=== PATIENT | female | born 1960 | race African-American/Black ===

== ENCOUNTER 2016-07-11 19:29 | Emergency (ER) | payer OTHER, MEDICARE ==
[~2016-07-11] VITALS: Ht 160 cm; Wt 68.0 kg
[~2016-07-11 19:29] MED LIST: BUDE10.22 IH; CARV25TA2 PO; DIGO125T PO; DULO60CA6 PO; FOLI1TAB16 PO; FURO40TA4 PO
[2016-07-11 21:31] VITALS: BP 107/63
[2016-07-11] MEDS: MORPHINE SULFATE 4 MG/ML DISP.SYRIN. IV/SQ PRN (22:45)
[2016-07-11] MEDS ORDERED: DEXAMETHASONE SOD PHOS 20 MG/5 ML VIAL. IV ONE (23:00)
[2016-07-11] MEDS ORDERED: ASPIRIN 81 MG TAB.CHEW PO ONE (23:00)
[2016-07-11] MEDS ORDERED: ONDANSETRON PF 4 MG/2 ML VIAL. IV ONE (23:00)
[2016-07-11 23:43] LABS: BASO # 0.1 x10^3/uL (0.0-0.2); BASO % 1 % (0-3); EOS % 1 % (0-3); HEMATOCRIT 37.6 % (36.0-47.0); HEMOGLOBIN 12.3 g/dL (12.0-15.5); LYMPH # 5.2 x10^3/uL (1.0-4.8); LYMPH % 51 % (24-48); MEAN CORPUSCULAR HEMOGLOBIN 30 pg (25-35); MEAN CORPUSCULAR HGB CONC 33 g/dL (31-37); MEAN CORPUSCULAR VOLUME 93 fL (79-100); MONO % 4 % (0-9); NEUT % 43 % (31-73); PLATELET COUNT 403 x10^3/uL (140-400); RED BLOOD COUNT 4.05 x10^6/uL (3.50-5.40); RED CELL DISTRIBUTION WIDTH 14.2 % (11.5-14.5); WHITE BLOOD COUNT 10.4 x10^3/uL (4.0-11.0)
[2016-07-12 00:01] LABS: CALCIUM 8.8 mg/dL (8.5-10.1); CREATININE 1.1 mg/dL (0.6-1.0)
[2016-07-12 00:07] LABS: ALBUMIN 3.6 g/dL (3.4-5.0); DIRECT BILIRUBIN 0.1 mg/dL (0.0-0.2); MAGNESIUM 2.2 mg/dL (1.8-2.4); TOTAL BILIRUBIN 0.2 mg/dL (0.2-1.0); TOTAL PROTEIN 7.1 g/dL (6.4-8.2)
[2016-07-12] MEDS: MORPHINE SULFATE 4 MG/ML DISP.SYRIN. IV/SQ PRN ×2 (00:13→00:39)
[2016-07-12 00:16] LABS: CKMB INDEX 0.6 % (0-4); CKMB MASS 0.8 ng/mL (0.0-3.6)
[2016-07-12] MEDS ORDERED: PRED-220 PO (00:31)
[2016-07-12] MEDS ORDERED: HYDR-971 PO (00:31)
--- NOTE | 2016-07-12 00:31 | PHYS DOC ---
Past Medical History Past Medical History: CHF, Fibromyalgia, GERD Additional Past Medical Histor: lupus, cardiomyopathy, esophagitis Past Surgical History: Tubal ligation Alcohol Use: None Drug Use: None Adult General Chief Complaint Chief Complaint: left upper arm pain HPI HPI Patient is a 55 year old female who presents with primary complaint of left upper extremity pain. Patient states that she has been having persistent pain over the past 4 days. Patient states that the pain is mostly in her left shoulder and radiates down her left arm. Patient also notes that she has left- sided chest pain. Patient has history of fibromyalgia and lupus. Patient follows with Dr. Mosqueda of cardiology. Patient states that she had recent stress testing in March 2016 which did not show any evidence of significant coronary stenosis. The patient states that the pain worsens at nighttime and with movement of the left upper extremity. Patient denies any recent trauma. Patient currently rates pain as 4 out of 10. Patient has been taking hydrocodone for pains in her left arm. Patient states that she ran out of this medication one week ago. Patient denies any shortness of breath, diaphoresis, or nausea associated with her chest pains. Patient states that these pains have been sharp. Review of Systems Review of Systems Constitutional: Denies fever or chills [] Eyes: Denies change in visual acuity, redness, or eye pain [] HENT: Denies nasal congestion or sore throat [] Respiratory: Denies cough or shortness of breath [] Cardiovascular: Chest pain [] GI: Denies abdominal pain, nausea, vomiting, bloody stools or diarrhea [] : Denies dysuria or hematuria [] Musculoskeletal: Left upper extremity pain [] Integument: Denies rash or skin lesions [] Neurologic: Denies headache, focal weakness or sensory changes [] Current Medications Current Medications Current Medications Medications (Trade) Dose Ordered Sig/Kellie Start Time Stop Time Status Last Admin Dose Admin Aspirin (Children'S Aspirin) 324 mg 1X ONCE 07/11/16 23:00 07/11/16 23:01 DC 07/11/16 22:45 324 MG Dexamethasone Sodium Phosphate (Decadron) 8 mg 1X ONCE 07/11/16 23:00 07/11/16 23:01 DC 07/11/16 22:45 8 MG Morphine Sulfate 4 mg PRN Q15MIN PRN 07/11/16 22:45 07/12/16 00:46 DC 07/12/16 00:39 4 MG Ondansetron HCl (Zofran) 4 mg 1X ONCE 07/11/16 23:00 07/11/16 23:01 DC 07/11/16 22:45 4 MG Allergies Allergies Allergies Coded Allergies Type Severity Reaction Last Updated Verified lisinopril Allergy Intermediate angioedema 02/06/14 Yes Physical Exam Physical Exam Constitutional: Alert, afebrile, appears in mild discomfort. [] HENT: Normocephalic, atraumatic, bilateral external ears normal, oropharynx moist, no oral exudates, nose normal. [] Eyes: PERRLA, EOMI, conjunctiva normal, no discharge. [] Neck: Normal range of motion, no tenderness, supple, no stridor. [] Cardiovascular:Heart rate regular rhythm, no murmur [] Lungs & Thorax: Bilateral breath sounds clear to auscultation, left-sided chest wall tenderness to palpation causing reproducible pain [] Abdomen: Bowel sounds normal, soft, no tenderness, no masses, no pulsatile masses. [] Skin: Warm, dry, no erythema, no rash. [] Back: No tenderness, no CVA tenderness. [] Extremities: Left anterior and lateral shoulder tenderness to palpation, no cyanosis, no clubbing, ROM intact, no edema. [] Neurologic: Alert and oriented X 3, normal motor function, normal sensory function, no focal deficits noted. [] Current Patient Data Vital Signs Vital Signs Date Time Temp Pulse Resp B/P Pulse Ox O2 Delivery O2 Flow Rate FiO2 07/11/16 21:31 62 15 107/63 97 Room Air 07/11/16 19:50 98.0 98.0 Lab Values Laboratory Tests Test 07/11/16 20:00 White Blood Count 10.4x10^3/uL (4.0-11.0) Red Blood Count 4.05x10^6/uL (3.50-5.40) Hemoglobin 12.3g/dL (12.0-15.5) Hematocrit 37.6% (36.0-47.0) Mean Corpuscular Volume 93fL (79-100) Mean Corpuscular Hemoglobin 30pg (25-35) Mean Corpuscular Hemoglobin Concent 33g/dL (31-37) Red Cell Distribution Width 14.2% (11.5-14.5) Platelet Count 403x10^3/uL (140-400) H Neutrophils (%) (Auto) 43% (31-73) Lymphocytes (%) (Auto) 51% (24-48) H Monocytes (%) (Auto) 4% (0-9) Eosinophils (%) (Auto) 1% (0-3) Basophils (%) (Auto) 1% (0-3) Neutrophils # (Auto) 4.5x10^3uL (1.8-7.7) Lymphocytes # (Auto) 5.2x10^3/uL (1.0-4.8) H Monocytes # (Auto) 0.5x10^3/uL (0.0-1.1) Eosinophils # (Auto) 0.1x10^3/uL (0.0-0.7) Basophils # (Auto) 0.1x10^3/uL (0.0-0.2) Sodium Level 135mmol/L (136-145) L Potassium Level 4.0mmol/L (3.5-5.1) Chloride Level 103mmol/L (98-107) Carbon Dioxide Level 28mmol/L (21-32) Anion Gap 4 (6-14) L Blood Urea Nitrogen 13mg/dL (7-20) Creatinine 1.1mg/dL (0.6-1.0) H Estimated GFR (Cockcroft-Gault) 52.0 Glucose Level 86mg/dL (70-99) Calcium Level 8.8mg/dL (8.5-10.1) Magnesium Level 2.2mg/dL (1.8-2.4) Total Bilirubin 0.2mg/dL (0.2-1.0) Direct Bilirubin 0.1mg/dL (0.0-0.2) Aspartate Amino Transferase (AST) 15U/L (15-37) Alanine Aminotransferase (ALT) 14U/L (14-59) Alkaline Phosphatase 65U/L (46-116) Creatine Kinase 139U/L (26-192) Creatine Kinase MB (Mass) 0.8ng/mL (0.0-3.6) Creatine Kinase MB Relative Index 0.6% (0-4) Troponin I Quantitative 0.037ng/mL (0.000-0.055) Total Protein 7.1g/dL (6.4-8.2) Albumin 3.6g/dL (3.4-5.0) Laboratory Tests 07/11/16 20:00 Laboratory Tests 07/11/16 20:00 EKG EKG Patient's EKG was reviewed in the emergency department and showed no acute abnormalities [] Radiology/Procedures Radiology/Procedures [facility] [address] [place] [address] IMAGING REPORT Signed PATIENT: TRESSA TITUS ACCOUNT: [id number] : 1960 LOCATION: ER AGE: 55 SEX: F EXAM STATUS: DEP ER ORD. PHYSICIAN: LUZ HADDAD MD REASON: chest pain PROCEDURE: PORTABLE CHEST 1V Indication chest pain. A single view of the chest was obtained and is compared to a study 03/13/2016. The heart, pulmonary vessels and mediastinum appear normal. The lungs are clear. There has not been a significant change in the appearance of the chest compared to the prior exam. IMPRESSION: No acute or focal process. No significant change DICTATED and SIGNED BY: ALISE FAUST MD DATE: 07/12/16 0737 CC: LUZ HADDAD MD; CANDELARIO MARX MD ~ [] Course & Med Decision Making Course & Med Decision Making Pertinent Labs and Imaging studies reviewed. (See chart for details) Patient's labwork unremarkable for acute cardiac pathology. I have low suspicion the patient is having angina symptoms. The patient's symptoms appear most consistent with possible inflammatory arthritis versus fibromyalgia flareup. After discussion with the patient, we will start patient on a prednisone taper. The patient was also given a small prescription for hydrocodone to help with breakthrough pain. I consult to Dr. Mosqueda who agreed with plan of care and asked that the patient follow-up in his clinic within the next 3-5 days. Recommended return to the emergency department for any worsening symptoms. Patient voiced understanding and in agreement with treatment plan. Dragon Disclaimer Dragon Disclaimer This electronic medical record was generated, in whole or in part, using a voice recognition dictation system. Departure Departure Impression: Primary Impression: Left arm pain Additional Impression: Chest pain Disposition: HOME, SELF-CARE Condition: IMPROVED Referrals: CANDELARIO MARX MD (PCP) Patient Instructions: Chest Pain (Nonspecific), Musculoskeletal Pain Additional Instructions: Follow-up with primary doctor in 3-5 days. Return to the emergency department for any worsening symptoms. Scripts Hydrocodone/Apap 5-325 ([place] 5-325 Tablet)1 Each Tablet1-2 Tab PO Q4-6HRS #20 TAB Prov:LUZ HADDAD MD 07/12/16 Prednisone 10 Mg [id number] Mg PO UD PREDNISONE TAPER #39 TAB Ref 0 Take 3 tablets by mouth twice a day for 3 days, then take 2 tablets by mouth twice a day for 3 days, then take 1 tablet by mouth twice a day for 3 days, then take 1 tablet by mouth daily x 3 days, then stop. Prov:LUZ HADDAD MD 07/12/16 Problem Qualifiers Additional Impression: Chest pain Chest pain type: other chest pain Qualified Code: R07.89 - Other chest pain LUZ HADDAD MD Jul 12, 2016 00:31
--- NOTE | 2016-07-12 06:52 | EKG ---
[facility] [address] [place] [address] Test Date: 2016-07-11 Test Time: 19:55:27 Pat Name: TRESSA TITUS Department: Room: Gender: F Advanced Solutions Architect: : 1960 Requested By: LUZ HADDAD Order Number: [id number] Reading MD: Antea Gaspar Measurements Intervals [place] Rate: 62 P: 41 SC: 148 QRS: 7 QRSD: 82 T: 36 QT: 400 QTc: 408 Interpretive Statements SINUS RHYTHM LEFT ATRIAL ABNORMALITY RI6.01 Unconfirmed report No previous ECG available for comparison Electronically Signed On 07-16-2016 15:02:54 STORE ASSOCIATE by Aneta Gaspar
--- NOTE | 2016-07-12 07:41 | RAD ---
Indication chest pain. A single view of the chest was obtained and is compared to a study 03/13/2016. The heart, pulmonary vessels and mediastinum appear normal. The lungs are clear. There has not been a significant change in the appearance of the chest compared to the prior exam. IMPRESSION: No acute or focal process. No significant change
== END 2016-07-12 00:46 | disposition home or self-care (01) ==
LOC: ER 19:29
DX: M79.622 Pain in left upper arm (principal); R07.89 Other chest pain; M25.512 Pain in left shoulder; I50.9 Heart failure, unspecified; I42.9 Cardiomyopathy, unspecified; K21.9 Gastro-esophageal reflux disease without esophagitis; M32.9 Systemic lupus erythematosus, unspecified; M79.7 Fibromyalgia; Z98.51 Tubal ligation status; Z88.8 Allergy status to other drugs, medicaments and biological substances
CPT/HCPCS: 36415; 71010; 80048; 80076; 82553; 83735; 84484; 85027; 93005; 96374; 96375; 96376; 99285; J1100; J2270; J2405

== ENCOUNTER 2016-07-19 15:57 | Inpatient (IN) | payer OTHER, MEDICARE ==
[~2016-07-19] VITALS: Ht 160 cm; Wt 75.1 kg
[~2016-07-19 15:57] MED LIST changes: +HYDR-971 PO; +PRED-220 PO
[2016-07-19 16:42] LABS: BASO # 0.1 x10^3/uL (0.0-0.2); BASO % 1 % (0-3); EOS % 1 % (0-3); HEMATOCRIT 42.5 % (36.0-47.0); HEMOGLOBIN 14.1 g/dL (12.0-15.5); LYMPH # 2.6 x10^3/uL (1.0-4.8); LYMPH % 24 % (24-48); MEAN CORPUSCULAR HEMOGLOBIN 31 pg (25-35); MEAN CORPUSCULAR HGB CONC 33 g/dL (31-37); MEAN CORPUSCULAR VOLUME 92 fL (79-100); MONO % 9 % (0-9); NEUT % 66 % (31-73); PLATELET COUNT 442 x10^3/uL (140-400); RED BLOOD COUNT 4.63 x10^6/uL (3.50-5.40); RED CELL DISTRIBUTION WIDTH 14.4 % (11.5-14.5)
[2016-07-19] MEDS ORDERED: ONDANSETRON PF 4 MG/2 ML VIAL. IV ONE (16:45)
[2016-07-19] MEDS ORDERED: ASPIRIN 81 MG TAB.CHEW PO ONE (16:45)
[2016-07-19] MEDS ORDERED: FENTANYL PF 100 MCG/2 ML VIAL. IV PRN (16:45)
[2016-07-19] MEDS ORDERED: NITROGLYCERIN SUBLINGUAL 0.4 MG BOTTLE OF 25. SL PRN (16:45)
[2016-07-19 16:58] LABS: CALCIUM 9.3 mg/dL (8.5-10.1); CREATININE 1.2 mg/dL (0.6-1.0); GFR 56.9; POTASSIUM 4.6 mmol/L (3.5-5.1)
[2016-07-19 17:02] LABS: ALBUMIN 3.9 g/dL (3.4-5.0); DIRECT BILIRUBIN 0.1 mg/dL (0.0-0.2); MAGNESIUM 2.2 mg/dL (1.8-2.4); TOTAL BILIRUBIN 0.4 mg/dL (0.2-1.0); TOTAL PROTEIN 7.9 g/dL (6.4-8.2)
[2016-07-19 17:09] LABS: CKMB INDEX 0.9 % (0-4); CKMB MASS 0.8 ng/mL (0.0-3.6)
[2016-07-19] MEDS ORDERED: IPRATRPIUM/ALBUTEROL 0.5/2.5MG 3 ML NEBU. NEB ONE (17:30)
[2016-07-19 18:00] LABS: OBC FLU VALID
[2016-07-19] MEDS ORDERED: ONDANSETRON PF 4 MG/2 ML VIAL. IV PRN (18:45)
--- NOTE | 2016-07-19 19:13 | PHYS DOC ---
Past Medical History Past Medical History: CHF, Fibromyalgia, GERD Additional Past Medical Histor: lupus, cardiomyopathy, esophagitis Past Surgical History: Tubal ligation Alcohol Use: None Drug Use: None Adult General Chief Complaint Chief Complaint: CHEST PAIN HPI HPI Patient is a 55 year old female who presents with complaint of chest pain and shortness of breath. Patient states that her chest pain started approximately 2 hours prior to arrival. Patient states that she has been having trouble with coughing over the past 3-4 days. Patient recently saw her primary physician and was prescribed Phenergan with codeine to help with cough. Patient states that her symptoms have been worsening. She states that her chest pressure has improved but is still present and rates it as a 4 out of 10 currently. Patient follows with Dr. Mosqueda for history of cardiomyopathy. Patient also has history of lupus and fibromyalgia. Patient states that the pressure radiates across her chest towards her left shoulder. Patient denies any associated nausea or vomiting but does have shortness of breath. Cough has been productive of yellow sputum. Patient has not taken any medications at this time to help with her chest pain. Patient denies any history of asthma or COPD. Patient has been on a prednisone taper for treatment of left upper extremity pain. Review of Systems Review of Systems Constitutional: Denies fever or chills [] Eyes: Denies change in visual acuity, redness, or eye pain [] HENT: Denies nasal congestion or sore throat [] Respiratory: Shortness of breath [] Cardiovascular: Chest pain [] GI: Denies abdominal pain, nausea, vomiting, bloody stools or diarrhea [] : Denies dysuria or hematuria [] Musculoskeletal: Left upper extremity pain [] Integument: Denies rash or skin lesions [] Neurologic: Denies headache, focal weakness or sensory changes [] Endocrine: Denies polyuria or polydipsia [] Current Medications Current Medications Current Medications Medications (Trade) Dose Ordered Sig/Kellie Start Time Stop Time Status Last Admin Dose Admin Albuterol/ Ipratropium (Duoneb) 6 ml 1X ONCE 07/19/16 17:30 07/19/16 17:31 DC 07/19/16 17:38 6 ML Aspirin (Children'S Aspirin) 324 mg 1X ONCE 07/19/16 16:45 07/19/16 16:46 DC 07/19/16 17:16 324 MG Fentanyl Citrate (Fentanyl 2ml Vial) 50 mcg PRN Q15MIN PRN 07/19/16 16:45 07/20/16 16:44 07/19/16 18:35 50 MCG Nitroglycerin (Nitrostat) 0.4 mg PRN Q5MIN PRN 07/19/16 16:45 07/20/16 16:44 07/19/16 17:18 0.4 MG Ondansetron HCl (Zofran) 4 mg 1X ONCE 07/19/16 16:45 07/19/16 16:46 DC 07/19/16 18:32 4 MG Allergies Allergies Allergies Coded Allergies Type Severity Reaction Last Updated Verified lisinopril Allergy Intermediate angioedema 02/06/14 Yes Physical Exam Physical Exam Constitutional: Alert, afebrile, appears in mild to moderate discomfort. [] HENT: Normocephalic, atraumatic, bilateral external ears normal, oropharynx moist, no oral exudates, nose normal. [] Eyes: PERRLA, EOMI, conjunctiva normal, no discharge. [] Neck: Normal range of motion, no tenderness, supple, no stridor. [] Cardiovascular:Heart rate regular rhythm, no murmur [] Lungs & Thorax: Mild to moderate restriction of air movement bilaterally, expiratory wheezes bilaterally, no rales [] Abdomen: Bowel sounds normal, soft, no tenderness, no masses, no pulsatile masses. [] Skin: Warm, dry, no erythema, no rash. [] Back: No tenderness, no CVA tenderness. [] Extremities: No tenderness, no cyanosis, no clubbing, ROM intact, no edema. [] Neurologic: Alert and oriented X 3, normal motor function, normal sensory function, no focal deficits noted. [] Current Patient Data Vital Signs Vital Signs Date Time Temp Pulse Resp B/P Pulse Ox O2 Delivery O2 Flow Rate FiO2 07/19/16 17:59 74 22 125/86 95 Room Air 07/19/16 16:18 97.9 97.9 Lab Values Laboratory Tests Test 07/19/16 16:25 07/19/16 17:20 White Blood Count 11.0x10^3/uL (4.0-11.0) Red Blood Count 4.63x10^6/uL (3.50-5.40) Hemoglobin 14.1g/dL (12.0-15.5) Hematocrit 42.5% (36.0-47.0) Mean Corpuscular Volume 92fL (79-100) Mean Corpuscular Hemoglobin 31pg (25-35) Mean Corpuscular Hemoglobin Concent 33g/dL (31-37) Red Cell Distribution Width 14.4% (11.5-14.5) Platelet Count 442x10^3/uL (140-400) H Neutrophils (%) (Auto) 66% (31-73) Lymphocytes (%) (Auto) 24% (24-48) Monocytes (%) (Auto) 9% (0-9) Eosinophils (%) (Auto) 1% (0-3) Basophils (%) (Auto) 1% (0-3) Neutrophils # (Auto) 7.3x10^3uL (1.8-7.7) Lymphocytes # (Auto) 2.6x10^3/uL (1.0-4.8) Monocytes # (Auto) 1.0x10^3/uL (0.0-1.1) Eosinophils # (Auto) 0.1x10^3/uL (0.0-0.7) Basophils # (Auto) 0.1x10^3/uL (0.0-0.2) Sodium Level 144mmol/L (136-145) Potassium Level 4.6mmol/L (3.5-5.1) Chloride Level 105mmol/L (98-107) Carbon Dioxide Level 29mmol/L (21-32) Anion Gap 10 (6-14) Blood Urea Nitrogen 20mg/dL (7-20) Creatinine 1.2mg/dL (0.6-1.0) H Estimated GFR (Cockcroft-Gault) 56.9 Glucose Level 110mg/dL (70-99) H Calcium Level 9.3mg/dL (8.5-10.1) Magnesium Level 2.2mg/dL (1.8-2.4) Total Bilirubin 0.4mg/dL (0.2-1.0) Direct Bilirubin 0.1mg/dL (0.0-0.2) Aspartate Amino Transferase (AST) 9U/L (15-37) L Alanine Aminotransferase (ALT) 23U/L (14-59) Alkaline Phosphatase 68U/L (46-116) Creatine Kinase 89U/L (26-192) Creatine Kinase MB (Mass) 0.8ng/mL (0.0-3.6) Creatine Kinase MB Relative Index 0.9% (0-4) Troponin I Quantitative < 0.017ng/mL (0.000-0.055) PT-Jai-L-Type Natriuretic Peptide 118pg/mL (0-124) Total Protein 7.9g/dL (6.4-8.2) Albumin 3.9g/dL (3.4-5.0) Influenza Type A Antigen Negative (NEGATIVE) Influenza Type B Antigen Negative (NEGATIVE) Laboratory Tests 07/19/16 16:25 Laboratory Tests 07/19/16 16:25 EKG EKG Interpreted by me: Heart rate 76, sinus rhythm, normal intervals, incomplete right bundle branch block, J-point elevation in leads V1 and V2, no acute ST elevations or depressions, no changes from previous EKG on July 11, 2016 [] Radiology/Procedures Radiology/Procedures One view AP chest x-ray interpreted by me: No infiltrate, no effusion, normal cardiac silhouette [] Course & Med Decision Making Course & Med Decision Making Pertinent Labs and Imaging studies reviewed. (See chart for details) Patient was given breathing treatments, aspirin, and Solu-Medrol in the emergency department. The patient stated that she had improvement in symptoms however she states that chest pressure is still present. I spoke with Dr. Mosqueda, patient's forestry adviser, due to persistent chest pain with history of cardiomyopathy. He recommended that the patient be admitted and he would agreed to consult on patient. Differential includes angina versus lupus exacerbation. I spoke with Dr. Victoria who accepted care patient in hospital. Dragon Disclaimer Dragon Disclaimer This electronic medical record was generated, in whole or in part, using a voice recognition dictation system. Departure Departure Impression: Primary Impression: Chest pain Additional Impression: Reactive airway disease Disposition: ADMITTED INPATIENT Admitting Physician: Delvin Victoria Condition: STABLE Referrals: DELVIN VICTORIA MD (PCP) Problem Qualifiers Primary Impression: Chest pain Chest pain type: unspecified Qualified Code: R07.9 - Chest pain, unspecified Additional Impression: Reactive airway disease Asthma severity: moderate persistent Asthma complication type: uncomplicated Qualified Code: J45.40 - Moderate persistent asthma, uncomplicated LUZ HADDAD MD Jul 19, 2016 19:13
[2016-07-19] MEDS: IV NORMAL SALINE 1000ML BAG 1,000 ML IV SCH (19:25)
[2016-07-19 21:10] VITALS: BP 122/79
[2016-07-19] MEDS ORDERED: BUDE10.22 IH (22:37)
[2016-07-19] MEDS ORDERED: ESCI10TA PO (22:37)
[2016-07-19] MEDS ORDERED: BENZ200C39 PO (22:37)
[2016-07-19] MEDS ORDERED: OMEP40CA5 PO (22:37)
[2016-07-19] MEDS ORDERED: NON FORMULARY ITEM (Budesonide/Formoterol Fumarate (Symbicort 80-4.5 Mcg Inhaler) 2 PUFF) IH SCH (22:45)
[2016-07-19] MEDS: ACETAMINOPHEN 325 MG TABLET. PO PRN (22:53)
[2016-07-19] MEDS: ZOLPIDEM 5 MG TABLET. PO PRN (22:53)
[2016-07-19 22:57] VITALS: BP 121/89
[2016-07-19] MEDS: methylPREDNISolone SOD SUCC PF 40 MG/ML VIAL. IV SCH (23:49)
[2016-07-20 03:00] VITALS: BP 128/74
[2016-07-20] MEDS: IV NORMAL SALINE 1000ML BAG 1,000 ML IV SCH ×2 (04:35→14:35)
[2016-07-20] MEDS: methylPREDNISolone SOD SUCC PF 40 MG/ML VIAL. IV SCH (06:12)
[2016-07-20 07:00] VITALS: BP 123/90
[2016-07-20] MEDS: ALBUTEROL SULFATE 2.5 MG/3 ML NEBU. NEB SCH ×4 (07:00→19:58)
[2016-07-20] MEDS: BUDESONIDE 0.5 MG/2 ML NEBU NEB SCH ×2 (07:00→19:58)
[2016-07-20 07:09] LABS: BASO % 0 % (0-3); EOS % 0 % (0-3); HEMATOCRIT 40.7 % (36.0-47.0); HEMOGLOBIN 13.1 g/dL (12.0-15.5); LYMPH % 23 % (24-48); MEAN CORPUSCULAR HEMOGLOBIN 30 pg (25-35); MEAN CORPUSCULAR HGB CONC 32 g/dL (31-37); MEAN CORPUSCULAR VOLUME 93 fL (79-100); MONO % 5 % (0-9); NEUT % 71 % (31-73); PLATELET COUNT 411 x10^3/uL (140-400); RED CELL DISTRIBUTION WIDTH 14.7 % (11.5-14.5); WHITE BLOOD COUNT 8.5 x10^3/uL (4.0-11.0)
[2016-07-20 07:10] LABS: CREATININE 1.1 mg/dL (0.6-1.0); GFR 62.9
--- NOTE | 2016-07-20 07:19 | EKG ---
[facility] [address] [place] [address] Test Date: 2016-07-19 Test Time: 16:04:19 Pat Name: TRESSA TITUS Department: Room: 521 1 Gender: F Refrigeration Mechanic Helper: : 1960 Requested By: LUZ HADDAD Order Number: [id number] Reading MD: Blair Ca Measurements Intervals [place] Rate: 76 P: 51 [place]: 116 QRS: 58 QRSD: 74 T: 50 QT: 340 QTc: 386 Interpretive Statements SINUS RHYTHM LEFT ATRIAL ABNORMALITY Electronically Signed On 08-03-2016 14:43:50 ENGINEERING DOCUMENTATION SPECIALIST by Blair Ca
--- NOTE | 2016-07-20 07:45 | RAD ---
Portable chest, 07/19/2016: History: Chest pain, shortness of breath Comparison is made to a study from 07/11/2016. The heart size and pulmonary vascularity are normal. No pulmonary infiltrates are seen. There is no evidence of pleural fluid. IMPRESSION: No acute cardiopulmonary abnormality is detected.
[2016-07-20] MEDS ORDERED: CARVEDILOL 12.5 MG TABLET PO SCH (08:00)
[2016-07-20] MEDS: PANTOPRAZOLE 40 MG TABLET. PO SCH (08:25)
[2016-07-20] MEDS: ACETAMINOPHEN 325 MG TABLET. PO PRN ×2 (08:26→21:21)
[2016-07-20] MEDS: DULOXETINE HCL 30 MG CAPSULE.DR. PO SCH (09:00)
[2016-07-20] MEDS ORDERED: FUROSEMIDE 40 MG TABLET PO SCH (09:00)
[2016-07-20] MEDS ORDERED: PREDNISONE 10 MG TABLET PO SCH (09:00)
--- NOTE | 2016-07-20 09:25 | PDOC ---
Provider Note Provider Note [id number] CANDELARIO MARX MD Jul 20, 2016 09:25
[2016-07-20] MEDS ORDERED: IOHEXOL 300 MG/ML 75 ML VIAL IV ONE (09:30)
[2016-07-20] MEDS ORDERED: CONTRAST GIVEN MC PRN (09:30)
[2016-07-20] MEDS ORDERED: methylPREDNISolone SOD SUCC PF 40 MG/ML VIAL. IV SCH ×2 (09:30→21:00)
--- NOTE | 2016-07-20 09:57 | HP ---
ADMIT DATE: CHIEF COMPLAINT: Ongoing cough and dyspnea. HISTORY OF PRESENT ILLNESS: A 55-year-old black female has a history of mild cardiomyopathy and remote history of lupus and she use Symbicort in the past, which she was told " hard." She has never told she had asthma that she recalls and only uses Symbicort periodically. She has had increasing cough and shortness of breath recently admits in the ER, but she had some chest wall pain, was given some prednisone, which helped for a while. She has tapered off that and the cough has increased and she came in with increasing dyspnea. Chest x-ray was clear. All laboratory was normal and she was admitted with IV steroids is suspected to asthma exacerbation. She has no sputum production, no hemoptysis, fever, chills or other complaints. PAST MEDICAL HISTORY: Cardiomyopathy with a previous reduced ejection fraction, some years ago of 18%, but about a year and half ago, the EF was up to 48% per Dr. Mosqueda note. There is no history of coronary artery disease and the etiology of her cardiomyopathy is not clear, but there is viral or collagen vascular disease. ALLERGIES: ALLERGIC TO LISINOPRIL. MEDICATIONS: Include carvedilol, Lasix, Cymbalta and Lexapro. SOCIAL HISTORY: Nonsmoker, nondrinker, employed, single, not physically active. FAMILY HISTORY: Unremarkable. REVIEW OF SYSTEMS: Unremarkable. OBJECTIVE: ENT: All within normal limits. NECK: No masses, nodes or bruits. LUNGS: Few crackles, mildly decreased breath sounds, few scattered expiratory wheezes. CARDIOVASCULAR: Regular rate. No irregular beat, murmur or S3. Chest wall is nontender. ABDOMEN: Soft, benign and nontender. EXTREMITIES: Excellent pedal and radial pulses. No edema. No joint or skin lesions or nail bed findings. NEUROLOGIC: Physiologic and nonfocal, oriented x 4. ASSESSMENT: Suspect this is primarily reactive airway disease with secondary exacerbation. She has a history of lupus, but appears to be inactive parole lab markers and clinical markers at this time. The cardiomyopathy appears to be in remission probably ____ as well. Ongoing use of marijuana per drug screen could contribute to her ongoing cough. PLAN: Continue IV steroids. We will get a CTA make sure there is no pulmonary emboli as the secondary source of chest pain and cough. CANDELARIO MARX MD DR: Tunde JOB#: [id number] / [id number]
[2016-07-20] MEDS: ESCITALOPRAM 10 MG TABLET. PO SCH (10:33)
[2016-07-20] MEDS: FOLIC ACID 1 MG TABLET PO SCH (10:33)
[2016-07-20] MEDS: DIGOXIN 125 MCG TABLET PO SCH (10:34)
[2016-07-20 11:00] VITALS: BP 114/71
--- NOTE | 2016-07-20 12:59 | RAD ---
CTA of the chest with contrast, 07/20/2016: History: Shortness of breath, chronic cough Multidetector CT imaging was performed following an IV bolus injection of iodinated contrast material. Multiplanar reconstructions were produced including coronal MIP images. The main pulmonary artery is mildly dilated measuring 3.1 cm in width. It is fairly well opacified. No filling defects are seen in the central pulmonary arteries to suggest pulmonary emboli. Some of the segmental and subsegmental pulmonary arteries were not optimally delineated due to artifacts. The thoracic aorta is of normal caliber. There are calcified mediastinal lymph nodes compatible with old granulomatous disease. No noncalcified mediastinal or hilar adenopathy is seen. There several calcified granulomata are present in the right lung. Evaluation of lung parenchyma is partially compromised by respiratory motion artifacts. No pulmonary mass or significant consolidation is seen. There is no evidence of pleural fluid. A small fluid density lesion along the upper pole of the right kidney is most likely an exophytic renal cyst. An adrenal cyst or benign adenoma could also give this appearance.. IMPRESSION: 1. No CT evidence of central pulmonary emboli. 2. Mild enlargement of the main pulmonary artery 3. Old healed granulomatous disease in the chest. PQRS Compliance Statement: One or more of the following individualized dose reduction techniques were utilized for this examination: 1. Automated exposure control 2. Adjustment of the mA and/or kV according to patient size 3. Use of iterative reconstruction technique
[2016-07-20 15:00] VITALS: BP 133/86
--- NOTE | 2016-07-20 16:25 | PDOC2 ---
CONSULT Date of Consult Date of Consult DATE: 07/20/16 TIME: 16:13 Reason for Consult Reason for Consult: Cardiomyopathy - possible CHF Referring Physician Referring Physician: Dr. Victoria Identification/Chief Complaint Chief Complaint SOB History of Present Illness Reason for Visit: Pt came in yesterday due to shortness of breath, light headedness, and orthopnea. Pt stated she had chest pressure but denied pain. Pt stated it was in the center of her chest and did not radiate. Pt today stated her pressure was not as bad today but when she stood up she started having chest pressure. Pt stated that rest helped her pressure. Pt has a history of cardiomyopathy and lupus. Pt stated today her she still had SOB but it was better than yesterday. Past Medical History Cardiovascular: CHF, HTN GI: Gastritis Current Problem List Problem List Problems Medical Problems: (1) Chest pain Status: Acute (2) Reactive airway disease Status: Acute Current Medications Current Medications Current Medications Aspirin (Children'S Aspirin) 324 mg 1X ONCE PO Last administered on 07/19/16 17:16; Start 07/19/16 at 16:45; Stop 07/20/16 at 09:22; Status DC Nitroglycerin (Nitrostat) 0.4 mg PRN Q5MIN PRN SL CP RATING > 1/10 Last administered on 07/19/16 17:18; Start 07/19/16 at 16:45; Stop 07/20/16 at 16:44 Fentanyl Citrate (Fentanyl 2ml Vial) 50 mcg PRN Q15MIN PRN IV PAIN GREATER THAN 3/10 Last administered on 07/19/16 18:35; Start 07/19/16 at 16:45; Stop at 09:09; Status DC Ondansetron HCl (Zofran) 4 mg 1X ONCE IV Last administered on 07/19/16 18:32 ; Start 07/19/16 at 16:45; Stop 07/19/16 at 16:46; Status DC Albuterol/ Ipratropium (Duoneb) 6 ml 1X ONCE NEB Last administered on 17:38; Start 07/19/16 at 17:30; Stop 07/19/16 at 17:31; Status DC Ondansetron HCl 4 mg 4 mg PRN Q8HRS PRN IV NAUSEA/VOMITING; Start 07/19/16 at 18:45; Stop 07/20/16 at 18:44 Sodium Chloride (Iv Sodium Chloride 0.9% 1000ml Bag) 1,000 ml @ 100 mls/hr Q10H IV Last administered on 07/19/16 19:25; Start 07/19/16 at 18:35; Stop at 18:34 Acetaminophen (Tylenol) 650 mg PRN Q4HRS PRN PO FEVER Last administered on 07/20 08:26; Start 07/19/16 at 18:45; Stop 07/20/16 at 18:44 Methylprednisolone Sodium Succinate (Solu-Medrol 40mg Vial) 60 mg Q6HRS IV Last administered on 07/20/16 06:12; Start 07/20/16 at 00:00; Stop 07/20/16 at 09:09; Status DC Digoxin (Lanoxin) 125 mcg DAILY PO Last administered on 07/20/16 10:34; Start 07/20/16 at 09:00 Escitalopram Oxalate (Lexapro) 10 mg DAILY PO Last administered on 07/20/16 10 :33; Start 07/20/16 at 09:00 Folic Acid (Folic Acid) 0.5 mg DAILY PO Last administered on 07/20/16 10:33; Start 07/20/16 at 09:00 Furosemide (Lasix) 40 mg DAILY PO ; Start 07/20/16 at 09:00; Stop 07/20/16 at 09 :22; Status DC Prednisone (Prednisone) 10 mg DAILY PO ; Start 07/20/16 at 09:00; Status UNV Benzonatate (Tessalon Perle) 200 mg PRN TID PRN PO COUGH; Start 07/20/16 at 09: 00 Non-Formulary Medication 2 puff PRN IH ; Start 07/19/16 at 22:45; Status UNV Carvedilol (Coreg) 25 mg DAILYWBKFT PO Last administered on 07/20/16 08:26; Start 07/20/16 at 08:00; Stop 07/20/16 at 09:22; Status DC Duloxetine HCl (Cymbalta) 60 mg DAILY PO ; Start 07/20/16 at 09:00 Pantoprazole Sodium (Protonix) 40 mg DAILYAC PO Last administered on 07/20/16 08:25; Start 07/20/16 at 07:30 Zolpidem Tartrate (Ambien) 5 mg PRN QHS PRN PO INSOMNIA Last administered on 22:53; Start 07/19/16 at 22:45 Budesonide (Pulmicort) 0.5 mg RTBID NEB Last administered on 07/20/16 07:00; Start 07/20/16 at 08:00 Albuterol Sulfate (Ventolin Neb Soln) 2.5 mg RTQID NEB Last administered on 10:47; Start 07/20/16 at 08:00; Stop 07/20/16 at 15:50; Status DC Methylprednisolone Sodium Succinate (Solu-Medrol 40mg Vial) 60 mg BID IV Last administered on 07/20/16 10:35; Start 07/20/16 at 09:30 Carvedilol (Coreg) 12.5 mg BID76 PO ; Start 07/21/16 at 07:00 Iohexol (Omnipaque 300 Mg/ml) 75 ml 1X ONCE IV ; Start 07/20/16 at 09:30; Stop 07/20/16 at 09:31; Status DC Info (Do NOT chart on this entry -- for MONITORING) 1 each PRN DAILY PRN MC SEE COMMENTS; Start 07/20/16 at 09:30; Stop 07/22/16 at 09:29 Albuterol Sulfate (Ventolin Neb Soln) 2.5 mg Q4HRS NEB Last administered on 15:57; Start 07/20/16 at 16:00 Active Scripts Active [place] 5-325 Tablet (Acetaminophen/Hydrocodone Bitart) 1 Each Tablet 1-2 Tab PO Q4-6HRS Prednisone 10 Mg Tablet 10 Mg PO UD Take 3 tablets by mouth twice a day for 3 days, then take 2 tablets by mouth twice a day for 3 days, then take 1 tablet by mouth twice a day for 3 days, then take 1 tablet by mouth daily x 3 days, then stop. Reported Symbicort 80-4.5 Mcg Inhaler (Budesonide/Formoterol Fumarate) 10.2 Gm Hfa.aer.ad 2 Puff IH PRN PRN Omeprazole 40 Mg Capsule.dr 1 Cap PO DAILY Escitalopram Oxalate 10 Mg Tablet 1 Tab PO DAILY Benzonatate 200 Mg Capsule 1 Cap PO PRN TID Symbicort 80-4.5 Mcg Inhaler (Budesonide/Formoterol Fumarate) 10.2 Gm Hfa.aer.ad 2 Puff IH PRN Folic Acid 1 Mg Tablet 400 Mcg PO DAILY Carvedilol 25 Mg Tablet 25 Mg PO DAILY Digoxin 125 Mcg Tablet 125 Mcg PO DAILY Furosemide 40 Mg Tablet 40 Mg PO DAILY Cymbalta (Duloxetine Hcl) 60 Mg Capsule. 1 Cap PO DAILY Allergies Allergies: Coded Allergies: lisinopril (Verified Allergy, Intermediate, angioedema, 02/06/14) ROS General: YES: Fatigue, Night Sweats Cardiovascular: yes Orthopnea Gastrointestinal: No Abdominal Pain, No Constipation, No Diarrhea, No Melena, No Nausea, No Vomiting Physical Exam General: Alert, No acute distress HEENT: Atraumatic, EOMI Lungs: Other (inspiratory wheeze and expiratory crackles more pronouced on the R middle lobe) Heart: Regular rate, Normal S1, Normal S2 Extremities: No cyanosis, No edema Skin: No rashes Vitals VITALS Vital Signs Date Time Temp Pulse Resp B/P Pulse Ox O2 Delivery O2 Flow Rate FiO2 07/20/16 15:57 97 Room Air 07/20/16 15:00 97.9 70 20 133/86 97.9 Labs Labs Laboratory Tests Test 07/19/16 16:25 07/19/16 17:20 07/20/16 00:40 07/20/16 06:35 White Blood Count 11.0x10^3/uL (4.0-11.0) 8.5x10^3/uL (4.0-11.0) Red Blood Count 4.63x10^6/uL (3.50-5.40) 4.40x10^6/uL (3.50-5.40) Hemoglobin 14.1g/dL (12.0-15.5) 13.1g/dL (12.0-15.5) Hematocrit 42.5% (36.0-47.0) 40.7% (36.0-47.0) Mean Corpuscular Volume 92fL (79-100) 93fL (79-100) Mean Corpuscular Hemoglobin 31pg (25-35) 30pg (25-35) Mean Corpuscular Hemoglobin Concent 33g/dL (31-37) 32g/dL (31-37) Red Cell Distribution Width 14.4% (11.5-14.5) 14.7% (11.5-14.5) Platelet Count 442x10^3/uL (140-400) 411x10^3/uL (140-400) Neutrophils (%) (Auto) 66% (31-73) 71% (31-73) Lymphocytes (%) (Auto) 24% (24-48) 23% (24-48) Monocytes (%) (Auto) 9% (0-9) 5% (0-9) Eosinophils (%) (Auto) 1% (0-3) 0% (0-3) Basophils (%) (Auto) 1% (0-3) 0% (0-3) Neutrophils # (Auto) 7.3x10^3uL (1.8-7.7) 6.0x10^3uL (1.8-7.7) Lymphocytes # (Auto) 2.6x10^3/uL (1.0-4.8) 2.0x10^3/uL (1.0-4.8) Monocytes # (Auto) 1.0x10^3/uL (0.0-1.1) 0.4x10^3/uL (0.0-1.1) Eosinophils # (Auto) 0.1x10^3/uL (0.0-0.7) 0.0x10^3/uL (0.0-0.7) Basophils # (Auto) 0.1x10^3/uL (0.0-0.2) 0.0x10^3/uL (0.0-0.2) Sodium Level 144mmol/L (136-145) 144mmol/L (136-145) Potassium Level 4.6mmol/L (3.5-5.1) 5.0mmol/L (3.5-5.1) Chloride Level 105mmol/L (98-107) 107mmol/L (98-107) Carbon Dioxide Level 29mmol/L (21-32) 29mmol/L (21-32) Anion Gap 10 (6-14) 8 (6-14) Blood Urea Nitrogen 20mg/dL (7-20) 20mg/dL (7-20) Creatinine 1.2mg/dL (0.6-1.0) 1.1mg/dL (0.6-1.0) Estimated GFR (Cockcroft-Gault) 56.9 62.9 Glucose Level 110mg/dL (70-99) 125mg/dL (70-99) Calcium Level 9.3mg/dL (8.5-10.1) 9.0mg/dL (8.5-10.1) Magnesium Level 2.2mg/dL (1.8-2.4) Total Bilirubin 0.4mg/dL (0.2-1.0) Direct Bilirubin 0.1mg/dL (0.0-0.2) Aspartate Amino Transf (AST/SGOT) 9U/L (15-37) Alanine Aminotransferase (ALT/SGPT) 23U/L (14-59) Alkaline Phosphatase 68U/L (46-116) Creatine Kinase 89U/L (26-192) Creatine Kinase MB (Mass) 0.8ng/mL (0.0-3.6) Creatine Kinase MB Relative Index 0.9% (0-4) Troponin I Quantitative < 0.017ng/mL (0.000-0.055) 0.023ng/mL (0.000-0.055) 0.019ng/mL (0.000-0.055) UL-Zdm-P-Type Natriuretic Peptide 118pg/mL (0-124) Total Protein 7.9g/dL (6.4-8.2) Albumin 3.9g/dL (3.4-5.0) Influenza Type A Antigen Negative (NEGATIVE) Influenza Type B Antigen Negative (NEGATIVE) Erythrocyte Sedimentation Rate 21 (0-25) Laboratory Tests Test 07/19/16 16:25 07/19/16 17:20 07/20/16 00:40 07/20/16 06:35 White Blood Count 11.0x10^3/uL (4.0-11.0) 8.5x10^3/uL (4.0-11.0) Red Blood Count 4.63x10^6/uL (3.50-5.40) 4.40x10^6/uL (3.50-5.40) Hemoglobin 14.1g/dL (12.0-15.5) 13.1g/dL (12.0-15.5) Hematocrit 42.5% (36.0-47.0) 40.7% (36.0-47.0) Mean Corpuscular Volume 92fL (79-100) 93fL (79-100) Mean Corpuscular Hemoglobin 31pg (25-35) 30pg (25-35) Mean Corpuscular Hemoglobin Concent 33g/dL (31-37) 32g/dL (31-37) Red Cell Distribution Width 14.4% (11.5-14.5) 14.7% (11.5-14.5) Platelet Count 442x10^3/uL (140-400) 411x10^3/uL (140-400) Neutrophils (%) (Auto) 66% (31-73) 71% (31-73) Lymphocytes (%) (Auto) 24% (24-48) 23% (24-48) Monocytes (%) (Auto) 9% (0-9) 5% (0-9) Eosinophils (%) (Auto) 1% (0-3) 0% (0-3) Basophils (%) (Auto) 1% (0-3) 0% (0-3) Neutrophils # (Auto) 7.3x10^3uL (1.8-7.7) 6.0x10^3uL (1.8-7.7) Lymphocytes # (Auto) 2.6x10^3/uL (1.0-4.8) 2.0x10^3/uL (1.0-4.8) Monocytes # (Auto) 1.0x10^3/uL (0.0-1.1) 0.4x10^3/uL (0.0-1.1) Eosinophils # (Auto) 0.1x10^3/uL (0.0-0.7) 0.0x10^3/uL (0.0-0.7) Basophils # (Auto) 0.1x10^3/uL (0.0-0.2) 0.0x10^3/uL (0.0-0.2) Sodium Level 144mmol/L (136-145) 144mmol/L (136-145) Potassium Level 4.6mmol/L (3.5-5.1) 5.0mmol/L (3.5-5.1) Chloride Level 105mmol/L (98-107) 107mmol/L (98-107) Carbon Dioxide Level 29mmol/L (21-32) 29mmol/L (21-32) Anion Gap 10 (6-14) 8 (6-14) Blood Urea Nitrogen 20mg/dL (7-20) 20mg/dL (7-20) Creatinine 1.2mg/dL (0.6-1.0) 1.1mg/dL (0.6-1.0) Estimated GFR (Cockcroft-Gault) 56.9 62.9 Glucose Level 110mg/dL (70-99) 125mg/dL (70-99) Calcium Level 9.3mg/dL (8.5-10.1) 9.0mg/dL (8.5-10.1) Magnesium Level 2.2mg/dL (1.8-2.4) Total Bilirubin 0.4mg/dL (0.2-1.0) Direct Bilirubin 0.1mg/dL (0.0-0.2) Aspartate Amino Transf (AST/SGOT) 9U/L (15-37) Alanine Aminotransferase (ALT/SGPT) 23U/L (14-59) Alkaline Phosphatase 68U/L (46-116) Creatine Kinase 89U/L (26-192) Creatine Kinase MB (Mass) 0.8ng/mL (0.0-3.6) Creatine Kinase MB Relative Index 0.9% (0-4) Troponin I Quantitative < 0.017ng/mL (0.000-0.055) 0.023ng/mL (0.000-0.055) 0.019ng/mL (0.000-0.055) NW-Dhk-X-Type Natriuretic Peptide 118pg/mL (0-124) Total Protein 7.9g/dL (6.4-8.2) Albumin 3.9g/dL (3.4-5.0) Influenza Type A Antigen Negative (NEGATIVE) Influenza Type B Antigen Negative (NEGATIVE) Erythrocyte Sedimentation Rate 21 (0-25) Assessment/Plan Assessment/Plan Reactive airway Bronchitis/Pneumonia Lupus Cardiomyopathy Continue current treatment Add antibiotic therapy No other current treatment from cardiac perspective at this time. Thank you very much for including me in the care of this patient. KATE RIVAS MD Jul 20, 2016 16:24
[2016-07-20 19:00] VITALS: BP 120/75
[2016-07-20] MEDS: ZOLPIDEM 5 MG TABLET. PO PRN (21:21)
[2016-07-20 23:00] VITALS: BP 124/90
[2016-07-20 23:45] LABS: BARBITURATES NEG (NEG); BENZODIAZEPINES NEG (NEG); CANNABINOIDS POS (NEG); COCAINE NEG (NEG); METHADONE NEG (NEG); OPIATES POS (NEG); PHENCYCLIDINE NEG (NEG)
[2016-07-20 23:47] LABS: ETHANOL, URINE NEG (NEG)
[2016-07-21] VITALS (8 sets, daily range): BP systolic 122–139; BP diastolic 76–95
[2016-07-21] MEDS ORDERED: CARVEDILOL 12.5 MG TABLET PO SCH (07:00)
[2016-07-21] MEDS: ALBUTEROL SULFATE 2.5 MG/3 ML NEBU. NEB SCH (07:08)
[2016-07-21] MEDS: BUDESONIDE 0.5 MG/2 ML NEBU NEB SCH (07:08)
--- NOTE | 2016-07-21 08:13 | PDOC ---
Provider Note Provider Note vss, still diffuse wheezes, no new sxs- discussed weed and RAD, will go to po pred, likely dc in am, may need to reduce coreg re bronchospasm CANDELARIO MARX MD Jul 21, 2016 08:13
[2016-07-21] MEDS: ACETAMINOPHEN 325 MG TABLET. PO PRN ×2 (08:58→17:51)
[2016-07-21] MEDS: PANTOPRAZOLE 40 MG TABLET. PO SCH (08:59)
[2016-07-21] MEDS: FOLIC ACID 1 MG TABLET PO SCH (08:59)
[2016-07-21] MEDS: ESCITALOPRAM 10 MG TABLET. PO SCH (08:59)
[2016-07-21] MEDS: DIGOXIN 125 MCG TABLET PO SCH (08:59)
[2016-07-21] MEDS ORDERED: PREDNISONE 20 MG TABLET PO SCH (09:00)
[2016-07-21] MEDS: DULOXETINE HCL 30 MG CAPSULE.DR. PO SCH (09:00)
[2016-07-21] MEDS: PREDNISONE 20 MG TABLET PO SCH (10:08)
[2016-07-21] MEDS: LEVOFLOXACIN 500 MG TABLET PO SCH (10:08)
--- NOTE | 2016-07-21 10:20 | PDOC ---
PROGRESS NOTES Subjective Subjective Pt had just got out of the shower when we saw her this morning. She stated she had not experienced SOB or chest pain this morning. Denied n/v, lightheadedness. Pt stated she has had a headache since admission. She stated the headache gets worse when she coughs. Pt stated she "sees stars". No other complaints at this time. Objective Objective Vital Signs Date Time Temp Pulse Resp B/P Pulse Ox O2 Delivery O2 Flow Rate FiO2 07/21/16 09:00 Room Air 2.0 07/21/16 08:59 72 126/88 07/21/16 08:10 98.0 16 98 98.0 Intake and Output 07/21/16 07:00 Intake Total 560 ml Balance 560 ml Intake Oral 560 ml Physical Exam Physical Exam No change in cardiac exam Pt's lung sounds sound better than yesterday. Expiratory wheeze in R middle lobe. All other wills clear. Assessment Assessment Problems Medical Problems: (1) Chest pain Status: Acute (2) Reactive airway disease Status: Acute Plan Plan of Care Reactive airway Bronchitis / Pneumonia Continue oral antibiotics, steroids Stable from cardiac perspective Agree with Dr Victoria's plan. Comment Review of Relevant I have reviewed the following items ra (where applicable) has been applied. Labs Laboratory Tests Test 07/19/16 16:25 07/19/16 17:20 07/20/16 00:40 07/20/16 06:35 White Blood Count 11.0x10^3/uL (4.0-11.0) 8.5x10^3/uL (4.0-11.0) Red Blood Count 4.63x10^6/uL (3.50-5.40) 4.40x10^6/uL (3.50-5.40) Hemoglobin 14.1g/dL (12.0-15.5) 13.1g/dL (12.0-15.5) Hematocrit 42.5% (36.0-47.0) 40.7% (36.0-47.0) Mean Corpuscular Volume 92fL (79-100) 93fL (79-100) Mean Corpuscular Hemoglobin 31pg (25-35) 30pg (25-35) Mean Corpuscular Hemoglobin Concent 33g/dL (31-37) 32g/dL (31-37) Red Cell Distribution Width 14.4% (11.5-14.5) 14.7% (11.5-14.5) Platelet Count 442x10^3/uL (140-400) 411x10^3/uL (140-400) Neutrophils (%) (Auto) 66% (31-73) 71% (31-73) Lymphocytes (%) (Auto) 24% (24-48) 23% (24-48) Monocytes (%) (Auto) 9% (0-9) 5% (0-9) Eosinophils (%) (Auto) 1% (0-3) 0% (0-3) Basophils (%) (Auto) 1% (0-3) 0% (0-3) Neutrophils # (Auto) 7.3x10^3uL (1.8-7.7) 6.0x10^3uL (1.8-7.7) Lymphocytes # (Auto) 2.6x10^3/uL (1.0-4.8) 2.0x10^3/uL (1.0-4.8) Monocytes # (Auto) 1.0x10^3/uL (0.0-1.1) 0.4x10^3/uL (0.0-1.1) Eosinophils # (Auto) 0.1x10^3/uL (0.0-0.7) 0.0x10^3/uL (0.0-0.7) Basophils # (Auto) 0.1x10^3/uL (0.0-0.2) 0.0x10^3/uL (0.0-0.2) Sodium Level 144mmol/L (136-145) 144mmol/L (136-145) Potassium Level 4.6mmol/L (3.5-5.1) 5.0mmol/L (3.5-5.1) Chloride Level 105mmol/L (98-107) 107mmol/L (98-107) Carbon Dioxide Level 29mmol/L (21-32) 29mmol/L (21-32) Anion Gap 10 (6-14) 8 (6-14) Blood Urea Nitrogen 20mg/dL (7-20) 20mg/dL (7-20) Creatinine 1.2mg/dL (0.6-1.0) 1.1mg/dL (0.6-1.0) Estimated GFR (Cockcroft-Gault) 56.9 62.9 Glucose Level 110mg/dL (70-99) 125mg/dL (70-99) Calcium Level 9.3mg/dL (8.5-10.1) 9.0mg/dL (8.5-10.1) Magnesium Level 2.2mg/dL (1.8-2.4) Total Bilirubin 0.4mg/dL (0.2-1.0) Direct Bilirubin 0.1mg/dL (0.0-0.2) Aspartate Amino Transf (AST/SGOT) 9U/L (15-37) Alanine Aminotransferase (ALT/SGPT) 23U/L (14-59) Alkaline Phosphatase 68U/L (46-116) Creatine Kinase 89U/L (26-192) Creatine Kinase MB (Mass) 0.8ng/mL (0.0-3.6) Creatine Kinase MB Relative Index 0.9% (0-4) Troponin I Quantitative < 0.017ng/mL (0.000-0.055) 0.023ng/mL (0.000-0.055) 0.019ng/mL (0.000-0.055) MK-Eqk-B-Type Natriuretic Peptide 118pg/mL (0-124) Total Protein 7.9g/dL (6.4-8.2) Albumin 3.9g/dL (3.4-5.0) Influenza Type A Antigen Negative (NEGATIVE) Influenza Type B Antigen Negative (NEGATIVE) Erythrocyte Sedimentation Rate 21 (0-25) Test 07/20/16 22:25 Urine Opiates Screen Pos (NEG) Urine Methadone Screen Neg (NEG) Urine Barbiturates Neg (NEG) Urine Phencyclidine Screen Neg (NEG) Urine Amphetamine/Methamphetamine Neg (NEG) Urine Benzodiazepines Screen Neg (NEG) Urine Cocaine Screen Neg (NEG) Urine Cannabinoids Screen Pos (NEG) Urine Ethyl Alcohol Neg (NEG) Laboratory Tests Test 07/20/16 22:25 Urine Opiates Screen Pos (NEG) Urine Methadone Screen Neg (NEG) Urine Barbiturates Neg (NEG) Urine Phencyclidine Screen Neg (NEG) Urine Amphetamine/Methamphetamine Neg (NEG) Urine Benzodiazepines Screen Neg (NEG) Urine Cocaine Screen Neg (NEG) Urine Cannabinoids Screen Pos (NEG) Urine Ethyl Alcohol Neg (NEG) Medications Current Medications Aspirin (Children'S Aspirin) 324 mg 1X ONCE PO Last administered on 07/19/16 17:16; Start 07/19/16 at 16:45; Stop 07/20/16 at 09:22; Status DC Nitroglycerin (Nitrostat) 0.4 mg PRN Q5MIN PRN SL CP RATING > 1/10 Last administered on 07/19/16 17:18; Start 07/19/16 at 16:45; Stop 07/20/16 at 16:44 ; Status DC Fentanyl Citrate (Fentanyl 2ml Vial) 50 mcg PRN Q15MIN PRN IV PAIN GREATER THAN 3/10 Last administered on 07/19/16 18:35; Start 07/19/16 at 16:45; Stop at 09:09; Status DC Ondansetron HCl (Zofran) 4 mg 1X ONCE IV Last administered on 07/19/16 18:32 ; Start 07/19/16 at 16:45; Stop 07/19/16 at 16:46; Status DC Albuterol/ Ipratropium (Duoneb) 6 ml 1X ONCE NEB Last administered on 17:38; Start 07/19/16 at 17:30; Stop 07/19/16 at 17:31; Status DC Ondansetron HCl 4 mg 4 mg PRN Q8HRS PRN IV NAUSEA/VOMITING; Start 07/19/16 at 18:45; Stop 07/20/16 at 18:44; Status DC Sodium Chloride (Iv Sodium Chloride 0.9% 1000ml Bag) 1,000 ml @ 100 mls/hr Q10H IV Last administered on 07/19/16 19:25; Start 07/19/16 at 18:35; Stop at 17:37; Status DC Acetaminophen (Tylenol) 650 mg PRN Q4HRS PRN PO FEVER Last administered on 07/20 08:26; Start 07/19/16 at 18:45; Stop 07/20/16 at 18:44; Status DC Methylprednisolone Sodium Succinate (Solu-Medrol 40mg Vial) 60 mg Q6HRS IV Last administered on 07/20/16 06:12; Start 07/20/16 at 00:00; Stop 07/20/16 at 09:09; Status DC Digoxin (Lanoxin) 125 mcg DAILY PO Last administered on 07/21/16 08:59; Start 07/20/16 at 09:00 Escitalopram Oxalate (Lexapro) 10 mg DAILY PO Last administered on 07/21/16 08 :59; Start 07/20/16 at 09:00 Folic Acid (Folic Acid) 0.5 mg DAILY PO Last administered on 07/21/16 08:59; Start 07/20/16 at 09:00 Furosemide (Lasix) 40 mg DAILY PO ; Start 07/20/16 at 09:00; Stop 07/20/16 at 09 :22; Status DC Prednisone (Prednisone) 10 mg DAILY PO ; Start 07/20/16 at 09:00; Status UNV Benzonatate (Tessalon Perle) 200 mg PRN TID PRN PO COUGH; Start 07/20/16 at 09: 00 Non-Formulary Medication 2 puff PRN IH ; Start 07/19/16 at 22:45; Status UNV Carvedilol (Coreg) 25 mg DAILYWBKFT PO Last administered on 07/20/16 08:26; Start 07/20/16 at 08:00; Stop 07/20/16 at 09:22; Status DC Duloxetine HCl (Cymbalta) 60 mg DAILY PO ; Start 07/20/16 at 09:00 Pantoprazole Sodium (Protonix) 40 mg DAILYAC PO Last administered on 07/21/16 08:59; Start 07/20/16 at 07:30 Zolpidem Tartrate (Ambien) 5 mg PRN QHS PRN PO INSOMNIA Last administered on 21:21; Start 07/19/16 at 22:45 Budesonide (Pulmicort) 0.5 mg RTBID NEB Last administered on 07/21/16 07:08; Start 07/20/16 at 08:00; Stop 07/21/16 at 07:47; Status DC Albuterol Sulfate (Ventolin Neb Soln) 2.5 mg RTQID NEB Last administered on 10:47; Start 07/20/16 at 08:00; Stop 07/20/16 at 15:50; Status DC Methylprednisolone Sodium Succinate (Solu-Medrol 40mg Vial) 60 mg BID IV Last administered on 07/20/16 10:35; Start 07/20/16 at 09:30; Stop 07/20/16 at 17:37 ; Status DC Carvedilol (Coreg) 12.5 mg BID76 PO Last administered on 07/21/16 06:16; Start 07/21/16 at 07:00; Stop 07/21/16 at 08:14; Status DC Iohexol (Omnipaque 300 Mg/ml) 75 ml 1X ONCE IV ; Start 07/20/16 at 09:30; Stop 07/20/16 at 09:31; Status DC Info (Do NOT chart on this entry -- for MONITORING) 1 each PRN DAILY PRN MC SEE COMMENTS; Start 07/20/16 at 09:30; Stop 07/22/16 at 09:29 Albuterol Sulfate (Ventolin Neb Soln) 2.5 mg Q4HRS NEB Last administered on 07:08; Start 07/20/16 at 16:00; Stop 07/21/16 at 08:12; Status DC Methylprednisolone Sodium Succinate 20 mg 20 mg TID IV Last administered on 21:02; Start 07/20/16 at 21:00; Stop 07/21/16 at 07:47; Status DC Levofloxacin/ Dextrose (LEVAQUIN 500mg PREMIX) 100 ml @ 100 mls/hr Q24H IV Last administered on 07/20/16 19:28; Start 07/20/16 at 20:00; Stop 07/21/16 at 07:47; Status DC Acetaminophen (Tylenol) 650 mg PRN Q4HRS PRN PO MILD PAIN / TEMP Last administered on 07/21/16 08:58; Start 07/20/16 at 21:15 Prednisone (Prednisone) 40 mg DAILY PO ; Start 07/21/16 at 09:00; Stop 07/21/16 at 09:00; Status DC Prednisone (Prednisone) 60 mg DAILY PO Last administered on 07/21/16 10:08; Start 07/21/16 at 09:00 Albuterol/ Ipratropium (Duoneb) 3 ml RTQID NEB ; Start 07/21/16 at 09:00 Levofloxacin (Levaquin) 500 mg DAILY06 PO Last administered on 07/21/16t 10:08 ; Start 07/21/16 at 09:00 Carvedilol (Coreg) 6.25 mg BIDWMEALS PO ; Start 07/21/16 at 17:00 Active Scripts Active [place] 5-325 Tablet (Acetaminophen/Hydrocodone Bitart) 1 Each Tablet 1-2 Tab PO Q4-6HRS Prednisone 10 Mg Tablet 10 Mg PO UD Take 3 tablets by mouth twice a day for 3 days, then take 2 tablets by mouth twice a day for 3 days, then take 1 tablet by mouth twice a day for 3 days, then take 1 tablet by mouth daily x 3 days, then stop. Reported Symbicort 80-4.5 Mcg Inhaler (Budesonide/Formoterol Fumarate) 10.2 Gm Hfa.aer.ad 2 Puff IH PRN PRN Omeprazole 40 Mg Capsule.dr 1 Cap PO DAILY Escitalopram Oxalate 10 Mg Tablet 1 Tab PO DAILY Benzonatate 200 Mg Capsule 1 Cap PO PRN TID Symbicort 80-4.5 Mcg Inhaler (Budesonide/Formoterol Fumarate) 10.2 Gm Hfa.aer.ad 2 Puff IH PRN Folic Acid 1 Mg Tablet 400 Mcg PO DAILY Carvedilol 25 Mg Tablet 25 Mg PO DAILY Digoxin 125 Mcg Tablet 125 Mcg PO DAILY Furosemide 40 Mg Tablet 40 Mg PO DAILY Cymbalta (Duloxetine Hcl) 60 Mg Capsule.dr 1 Cap PO DAILY Vitals/I & O Vital Sign - Last 24 Hours 07/20/16 07/20/16 07/20/16 07/20/16 10:34 10:47 11:00 15:00 Temp 97.8 97.9 97.8 97.9 Pulse 74 78 70 Resp 20 20 B/P 128/74 114/71 133/86 Pulse Ox 97 95 93 O2 Delivery Room Air Room Air Room Air 07/20/16 07/20/16 07/20/16 07/20/16 15:57 19:00 20:00 20:00 Temp 98.3 98.3 Pulse 72 Resp 18 B/P 120/75 Pulse Ox 97 95 97 O2 Delivery Room Air Room Air Room Air Room Air 07/20/16 07/20/16 07/21/16 07/21/16 20:03 23:00 03:00 06:15 Temp 97.4 98.1 97.4 98.1 Pulse 66 72 63 Resp 18 18 B/P 124/90 139/95 137/92 Pulse Ox 97 95 O2 Delivery Room Air Room Air Room Air 07/21/16 07/21/16 07/21/16 07/21/16 06:16 07:08 08:10 08:59 Temp 98.0 98.0 Pulse 63 72 72 Resp 16 B/P 137/92 126/88 126/88 Pulse Ox 98 98 O2 Delivery Nasal Cannula Room Air O2 Flow Rate 2.0 07/21/16 09:00 O2 Delivery Room Air O2 Flow Rate 2.0 Intake and Output 07/20/16 07/20/16 07/21/16 15:00 23:00 07:00 Intake Total 260 ml 300 ml Balance 260 ml 300 ml KATE RIVAS MD Jul 21, 2016 10:20
[2016-07-21] MEDS: IPRATRPIUM/ALBUTEROL 0.5/2.5MG 3 ML NEBU. NEB SCH ×3 (10:52→19:22)
[2016-07-21] MEDS: BENZONATATE 100 MG CAPSULE. PO PRN (17:50)
[2016-07-21] MEDS: CARVEDILOL 6.25 MG TABLET PO SCH (17:51)
[2016-07-22] MEDS ORDERED: ALBUTEROL SULFATE 2.5 MG/3 ML NEBU. NEB PRN (01:30)
[2016-07-22] MEDS: ACETAMINOPHEN 325 MG TABLET. PO PRN (01:43)
[2016-07-22 03:00] VITALS: BP 126/84
[2016-07-22] MEDS: BENZONATATE 100 MG CAPSULE. PO PRN (03:55)
[2016-07-22] MEDS: LEVOFLOXACIN 500 MG TABLET PO SCH (06:08)
[2016-07-22 07:00] VITALS: BP 128/89
[2016-07-22] MEDS: IPRATRPIUM/ALBUTEROL 0.5/2.5MG 3 ML NEBU. NEB SCH ×2 (07:26→11:33)
[2016-07-22] MEDS: PANTOPRAZOLE 40 MG TABLET. PO SCH (07:54)
[2016-07-22] MEDS: ESCITALOPRAM 10 MG TABLET. PO SCH (07:54)
[2016-07-22] MEDS: FOLIC ACID 1 MG TABLET PO SCH (07:55)
[2016-07-22] MEDS: PREDNISONE 20 MG TABLET PO SCH (07:55)
[2016-07-22] MEDS: DULOXETINE HCL 30 MG CAPSULE.DR. PO SCH (07:56)
[2016-07-22] MEDS: DIGOXIN 125 MCG TABLET PO SCH (07:57)
[2016-07-22] MEDS: CARVEDILOL 6.25 MG TABLET PO SCH (07:57)
[2016-07-22 10:45] VITALS: BP 122/75
--- NOTE | 2016-07-22 11:14 | DISCH ---
DISCHARGE INSTRUCTIONS Condition on Discharge Condition on Discharge: Stable Activity After Discharge Activity Instructions for Disc: No restrictions Diet after Discharge Diet after Discharge: Regular Follow-Up Follow up with: dr scherer 1 week CANDELARIO MARX MD Jul 22, 2016 11:14
--- NOTE | 2016-07-22 11:35 | PDOC ---
Provider Note Provider Note [id number] CANDELARIO MARX MD Jul 22, 2016 11:35
--- NOTE | 2016-07-22 22:22 | DS ---
DATE OF DISCHARGE: 07/22/2016 HOSPITAL SUMMARY: A 55-year-old black female with a history of cardiomyopathy and reactive airway disease, came in with wheezing, cough and fatigue. Chest x-ray was clear. CT scan showed no adenopathy, pulmonary emboli, infiltrates or any other lesions seen. Sed rate was normal at 21. CBC and chemistry profile were all within normal limits as was troponin. Urine drug screen was positive for cannabinoids. Flu tests were negative. She was treated with IV steroids and oral Levaquin and modifications of her home meds reducing carvedilol mainly to help reduce the bronchospasm and fatigue that she is having at home. We had a duyen discussion regarding her use of marijuana and the negative effects it is having on lung disease. She admits this could be contributing to the problem as well ____ stop the drug and avoid continued progressive lung problems. She is on oral meds and doing better at this time and comfortable to be followed as an outpatient with good oxygen saturations on room air. FINAL DIAGNOSES: 1. Reactive airway disease. 2. Chronic marijuana use. OPERATIONS, PROCEDURES, COMPLICATIONS: None. CONSULTATIONS: Dr. Mosqueda. DISPOSITION: Continue avoidance of any inhaled products have been encouraged. We will reduce her carvedilol to 6.25 mg twice a day and kept the Lasix down to 1 or 2-week given that she has a very reasonable ejection fraction now. She will take four more days of levofloxacin 500 mg daily, take a prednisone tapering dose over the next 9 days and get back on Symbicort 2 puffs twice a day every day that she has not been using at home. She will have ProAir as well for breakthrough use. Regular activity encouraged and complete smoke and airway irritation avoidance. Prognosis is good. We will see her in the office in 1 week. CANDELARIO MARX MD DR: CHANG/stacy JOB#: [id number] / [id number]
== END 2016-07-22 14:16 | disposition home or self-care (01) | DRG 202 ==
LOC: ER 15:57 → 5 NORTH 18:27
PROVIDERS: ADMIT Family Medicine; ATTEND Family Medicine
DX: J45.901 Unspecified asthma with (acute) exacerbation (principal); I42.9 Cardiomyopathy, unspecified; F12.90 Cannabis use, unspecified, uncomplicated; I11.0 Hypertensive heart disease with heart failure; I50.9 Heart failure, unspecified; K21.9 Gastro-esophageal reflux disease without esophagitis; M79.7 Fibromyalgia; Z88.8 Allergy status to other drugs, medicaments and biological substances; Z98.51 Tubal ligation status; Z79.899 Other long term (current) drug therapy
CPT/HCPCS: 36415; 71010; 71275; 80048; 80076; 82553; 83735; 83880; 84484; 85027; 85651; 87804; 93005; 94250; 94640; 94760; 96374; 96375; G0481; J1956; J2405; J2920; J3010; J7030; J7512; J7620; 99285-25

== ENCOUNTER 2016-09-02 22:07 | Emergency (ER) | payer OTHER, MEDICARE ==
[~2016-09-02] VITALS: Ht 160 cm; Wt 72.6 kg
[~2016-09-02 22:07] MED LIST changes: +BENZ200C39 PO; +ESCI10TA PO; +OMEP40CA5 PO
[2016-09-02 22:09] VITALS: BP 122/75
[2016-09-02] MEDS ORDERED: OXYC-323 PO (22:45)
[2016-09-02] MEDS ORDERED: PRED-220 PO (22:45)
--- NOTE | 2016-09-02 22:45 | PHYS DOC ---
Past Medical History Past Medical History: CHF, Fibromyalgia, GERD Additional Past Medical Histor: lupus, cardiomyopathy, esophagitis Past Surgical History: Tubal ligation Alcohol Use: None Drug Use: None Adult General Chief Complaint Chief Complaint: PAIN CONTROL HPI HPI Patient is a 55 year old female, with a history of lupus and fibromyalgia, presents the emergency Department today with atraumatic bilateral knee pain it' s been ongoing for more than a week. She saw her primary care doctor, Dr. Delvin Victoria, who prescribed her [place]. She states that the [place] is only managing the pain for 2-3 hours at a time. She denies any history of gout or inflammatory arthritide's. She states that she could not get a hold of Dr. Victoria this evening so she called her linux unix administrator Dr. Mosqueda for advice. She states she was advised to come to the emergency room for evaluation. Review of Systems Review of Systems Constitutional: Denies fever or chills [] Eyes: Denies change in visual acuity, redness, or eye pain [] HENT: Denies nasal congestion or sore throat [] Respiratory: Denies cough or shortness of breath [] Cardiovascular: No additional information not addressed in HPI [] GI: Denies abdominal pain, nausea, vomiting, bloody stools or diarrhea [] : Denies dysuria or hematuria [] Musculoskeletal: Denies back pain or joint pain [] Integument: Denies rash or skin lesions [] Neurologic: Denies headache, focal weakness or sensory changes [] Endocrine: Denies polyuria or polydipsia [] Current Medications Current Medications Current Medications Medications (Trade) Dose Ordered Sig/[facility] Start Time Stop Time Status Last Admin Dose Admin Morphine Sulfate 10 mg 1X ONCE 09/02/16 22:30 09/02/16 22:31 UNV Prednisone (Prednisone) 50 mg 1X ONCE 09/02/16 22:30 09/02/16 22:31 UNV Allergies Allergies Allergies Coded Allergies Type Severity Reaction Last Updated Verified lisinopril Allergy Intermediate angioedema 02/06/14 Yes Physical Exam Physical Exam Constitutional: Well developed, well nourished, mild distress, non-toxic appearance. HENT: Normocephalic, atraumatic, bilateral external ears normal, oropharynx moist, no oral exudates, nose normal. [] Eyes: PERRLA, EOMI, conjunctiva normal, no discharge. [] Neck: Normal range of motion, no tenderness, supple, no stridor. [] Cardiovascular:Heart rate regular rhythm, no murmur [] Lungs & Thorax: Bilateral breath sounds clear to auscultation [] Abdomen: Bowel sounds normal, soft, no tenderness, no masses, no pulsatile masses. [] Skin: Warm, dry, no erythema, no rash. [] Back: No tenderness, no CVA tenderness. [] Extremities: Bilateral knees are without erythema, fusiform swelling or other abnormalities. Bilateral lower extremities are otherwise normal in appearance. There are no palpable medial cords suggestive of DVTs. Bilateral lower extremities are warm and dry with strong posterior tibialis and dorsalis pedis pulses. Neurologic: Alert and oriented X 3, normal motor function, normal sensory function, no focal deficits noted. [] Psychologic: Affect normal, judgement normal, mood normal. [] Current Patient Data Vital Signs Vital Signs Date Time Temp Pulse Resp B/P Pulse Ox O2 Delivery O2 Flow Rate FiO2 09/02/16 22:09 98.8 80 18 122/75 99 Room Air 98.8 EKG EKG [] Radiology/Procedures Radiology/Procedures [] Course & Med Decision Making Course & Med Decision Making Patient received 10 mg of morphine IM here in the ED as well as 50 mg of prednisone by mouth. I will put her on a prednisone taper as well as write a prescription for Percocet. I've advised her to contact her primary care doctor Sunday morning to schedule follow-up appointment and request an appointment with a manager package. Dragon Disclaimer Dragon Disclaimer This electronic medical record was generated, in whole or in part, using a voice recognition dictation system. Departure Departure Impression: Primary Impression: Bilateral knee pain Disposition: 01 HOME, SELF-CARE Condition: IMPROVED Referrals: DELVIN VICTORIA MD (PCP) Patient Instructions: Knee Pain, [id number], Lupus Additional Instructions: 1. As discussed, you need to follow-up with Dr. Victoria this week to discuss any further pain management as well as a referral to see a manager package. 2. Do not combine the hydrocodone containing pain medication that you currently have with the oxycodone containing pain medications prescribed here today. This can cause an overdose possibly shutting down your heart and lung function. 3. Please review the discharge instructions provided for self-care and reasons to return to the emergency department. Scripts Oxycodone/Apap 5-325 (Percocet 5-325 Mg Tablet)1 Each Tablet1-2 Tab PO Q6HRS PAIN #20 TAB Prov:ANTOINETTE CARDOZA 09/02/16 Prednisone 10 Mg [id number] Mg PO UD PREDNISONE TAPER #39 TAB Ref 0 Take 3 tablets by mouth twice a day for 3 days, then take 2 tablets by mouth twice a day for 3 days, then take 1 tablet by mouth twice a day for 3 days, then take 1 tablet by mouth daily x 3 days, then stop. Prov:ANTOINETTE CARDOZA 09/02/16 Problem Qualifiers Primary Impression: Bilateral knee pain Chronicity: acute Qualified Code: M25.561 - Pain in right knee ANTOINETTE CARDOZA Sep 02, 2016 22:45
[2016-09-02] MEDS ORDERED: MORPHINE SULFATE 10 MG/ML VIAL. IM ONE (23:00)
[2016-09-02] MEDS ORDERED: PREDNISONE 20 MG TABLET PO ONE (23:00)
== END 2016-09-02 23:10 | disposition home or self-care (01) ==
LOC: ER 22:07
DX: M25.561 Pain in right knee (principal); M25.562 Pain in left knee; M79.7 Fibromyalgia; M32.9 Systemic lupus erythematosus, unspecified; K21.9 Gastro-esophageal reflux disease without esophagitis; I50.9 Heart failure, unspecified; I42.9 Cardiomyopathy, unspecified; Z88.8 Allergy status to other drugs, medicaments and biological substances
CPT/HCPCS: 96372; 99283; J2270; J7512

== ENCOUNTER 2020-11-08 06:02 | Day surgery (SDC) | payer OTHER, MEDICARE ==
[~2020-11-08] VITALS: Ht 161.3 cm; Wt 79.5 kg
[~2020-11-08 06:02] MED LIST changes: +ACET500T68 PO; -BENZ200C39 PO; +BENZ200C47 PO; -DIGO125T PO; +DIGO125T3 PO; -ESCI10TA PO; +ESCITALOPRAM OX10 MG PO; +HYDR-3164 PO; -HYDR-971 PO; +HYDR12.58 PO; +MAG-115 PO; +MULT-445 PO; -OMEP40CA5 PO; +OMEP40CA7 PO; +OXYC1TAB15 PO; +TOPI25TA52 PO
[2020-11-08 06:23] VITALS: BP 130/81
[2020-11-08] MEDS ORDERED: DEXAMETHASONE SOD PHOS 4 MG/ML VIAL ONE (06:30)
[2020-11-08] MEDS ORDERED: ONDANSETRON PF 4 MG/2 ML VIAL. ONE (06:30)
[2020-11-08] MEDS ORDERED: PROPOFOL 10 MG/ML (20ML) VIAL. IV ONE (06:30)
[2020-11-08] MEDS ORDERED: LIDOCAINE 2% PF 5 ML VIAL. ONE (06:30)
[2020-11-08] MEDS ORDERED: ROCURONIUM 50 MG/5 ML VIAL. ONE (06:30)
[2020-11-08] MEDS ORDERED: fentaNYL PF VIAL 100 MCG/2 ML VIAL IVP PRN ×2 (07:00)
[2020-11-08] MEDS ORDERED: IV RINGERS,LACTATED 1000ML 1,000 ML IV SCH ×2 (07:00)
[2020-11-08] MEDS ORDERED: HYDROmorphone 2 MG/ML VIAL IVP PRN (07:00)
[2020-11-08] MEDS ORDERED: fentaNYL PF VIAL 100 MCG/2 ML VIAL ONE (07:08)
[2020-11-08] MEDS ORDERED: MIDAZOLAM HCL/PF 2 MG/2 ML VIAL. ONE (07:08)
[2020-11-08] MEDS ORDERED: BUPIVACAINE MPF 0.5% 30 ML VIAL. ONE (07:10)
[2020-11-08] MEDS ORDERED: IOHEXOL 300 MG/ML 50 ML VIAL. ONE (07:10)
[2020-11-08] MEDS ORDERED: SURGICEL HEMOSTAT 4X8 EACH. ONE (07:10)
[2020-11-08] MEDS ORDERED: SEVOFLURANE 61 TO 120 MINUTES. IH ONE (07:52)
[2020-11-08] MEDS ORDERED: NEOSTIGMINE METHYLSULFATE 5 MG/5 ML SYRINGE. ONE (08:26)
[2020-11-08] MEDS ORDERED: GLYCOPYRROLATE 1 MG/5 ML VIAL. ONE (08:26)
[2020-11-08] MEDS ORDERED: KETOROLAC 30 MG/ML VIAL. ONE (08:31)
--- NOTE | 2020-11-08 08:42 | RAD ---
EXAM: INTRAOPERATIVE CHOLANGIOGRAM. HISTORY: Gallbladder disease. Intraoperative cholangiogram with cholecystectomy. COMPARISON: None. FINDINGS: 3 fluoroscopic images are obtained intraoperatively during injection of the cystic duct rem nant after cholecystectomy. There are no filling defects to suggest retained stones. The common duct is not dilated. Fluoroscopy time 0.11 minutes. IMPRESSION: 1. No evidence of retained stones. Electronically signed by: Khanh Garcia MD (11/08/2020 8:40 AM) [id number]
--- NOTE | 2020-11-08 08:50 | PDOC4 ---
Operative Note Operative Note Operative Note: Preoperative Diagnosis: Biliary dyskinesia Postoperative Diagnosis: Same Procedure: Laparoscopic cholecystectomy with intraoperative cholangiogram Surgeons: Paresh Police Cadet: Lydia CENTENO Anesthesia: Gen. Estimated Blood Loss: 10 mL Specimen: Gallbladder to pathology Drains: None Complications: None Indications: The patient is a 59 female who is referred with suspected biliary dyskinesia. Surgical treatment was offered by means of a laparoscopic cholecystectomy. The risks of surgery were discussed which include bleeding, infection, bile duct injury, bile leak, pain, the potential for additional surgeries or procedures. The patient understands and would like to proceed. Description: The patient was taken to the operating room and laid supine on the operating table. General anesthesia was performed. The abdomen was prepped with ChloraPrep and draped in a standard surgical fashion. A small infraumbili juan incision was made with a scalpel. The Veress needle was then inserted and a pneumoperitoneum was then created. A 5 mm trocar was then inserted and the laparoscope was introduced. In the upper midabdomen a 5 mm trocar was inserted and in the right upper quadrant two 2.3 mm mini lap graspers were inserted. The gallbladder was retracted cephalad. The cystic duct was dissected free from surrounding tissues. One clip was placed on the duct near the gallbladder junction. An opening was made in the duct and a cholangiocatheter placed within and secured with a clip. Using contrast dye and fluoroscopy an intraoperative cholangiogram was performed that appeared unremarkable. The clip and catheter were then withdrawn. Three clips were placed on the cystic duct and it was divided. The cystic artery was then identified, dissected free, doubly clipped and divided as well. The gallbladder was then mobilized away from the liver with cautery. The umbilical 5 millimeter trocar was exchanged for an 11 millimeter trocar. The gallbladder was then placed in an endoscopic bag and extracted at the umbilical trocar site. The fascia there was closed with an 0 Vicryl suture and infiltrated with 0.5% marcaine. All blood and irrigation fluid was suctioned and hemostasis was good. The remaining ports were removed and the pneumoperitoneum was relieved. The skin incisions were closed using 4-0 Monocryl suture. Steri-Strips and dressings were then applied. The patient tolerated the procedure well and was sent to the recovery room in stable condition. At the end of the case all counts were correct. MANOJ BACON MD Nov 08, 2020 08:50
[2020-11-08] MEDS ORDERED: MORPHINE SULFATE 2 MG/ML VIAL. ONE ×2 (08:52→09:07)
--- NOTE | 2020-11-08 08:52 | DISCH ---
DISCHARGE INSTRUCTIONS Condition on Discharge Condition on Discharge: Stable Activity After Discharge Activity Instructions for Disc: Other, see below (no lifting over 20 lbs X 2 weeks) Diet after Discharge Diet after Discharge: Regular Wound Incision Care Wound/Incision Care: Other, see below (may remove bandaids tomorrow and shower) Follow-Up Follow up with: Dr Bacon in 2 weeks in office, call for appointment [phone] MANOJ BACON MD Nov 08, 2020 08:52
[2020-11-08] MEDS: MORPHINE SULFATE 2 MG/ML VIAL. IVP PRN ×4 (08:56→09:29)
[2020-11-08] MEDS ORDERED: oxyCODONE/APAP 5/325 1 TAB TABLET PO ONE ×2 (09:00)
[2020-11-08] MEDS ORDERED: OXYC1TAB15 PO (09:04)
[2020-11-08] MEDS ORDERED: PROCHLORPERAZINE 10 MG/2 ML VIAL. ONE (09:07)
[2020-11-08] MEDS: PROCHLORPERAZINE 10 MG/2 ML VIAL. IVP PRN ×2 (09:09→09:29)
[2020-11-08] MEDS ORDERED: HYDROmorphone 2 MG/ML VIAL ONE (09:28)
[2020-11-08 09:41] VITALS: BP 139/89
--- NOTE | 2020-11-10 18:10 | PATHOLOGY ---
[facility] Accession Number: [id number] . 01 Material submitted: . gallbladder - GALLBLADDER . 01 Clinical history: . BILIARY DYSKINESIA LAP BETY . 02 Diagnosis: Gallbladder, laparoscopic cholecystectomy: - Chronic cholecystitis, mild. (MACIEM:hoang; 11/10/2020) Jeromy 11/10/2020 1611 Local . 02 Comment: There are no calculi identified within the gallbladder lumen or specimen container. There is no evidence of malignancy. (MACIEM:hoang; 11/10/2020) . 02 Electronically signed: . Ranulfo Juan MD, Pathologist NPI- [id number] . 01 Gross description: . Fixative: Formalin Labeled: Gallbladder Specimen received: Intact cholecystectomy specimen Dimensions: 9.6 x 4.2 x 3.8 cm Serosa: Trevizo-green and smooth Lymph node: None identified Mucosa: Green and velvety Average wall thickness: 0.1 cm Calculi: None identified Abnormalities: None identified A1- Trauma Coordinator body, fundus, and the cystic duct margin. ([facility] [place]; 11/09/2020) [facility] 11/10/2020 1610 Local . 02 Pathologist provided ICD-10: K81.1 . 02 CPT . 932892 Specimen Comment: A courtesy copy of this report has been sent to [phone], [phone] Specimen Comment: [id number] Specimen Comment: Report sent to / DR MARX Performed at: 01 [facility] [address], [place] [id number] MD Niall Fink MD Phone: [phone] Performed at: 02 [facility] [address] [place], [place] [id number] MD Ranulfo Juan MD Phone: [phone]
== END 2020-11-08 10:11 | disposition home or self-care (01) ==
LOC: SURG 06:02
PROVIDERS: ATTEND Surgery
DX: K82.8 Other specified diseases of gallbladder (principal); I11.0 Hypertensive heart disease with heart failure; I50.9 Heart failure, unspecified; K21.9 Gastro-esophageal reflux disease without esophagitis; F32.9 Major depressive disorder, single episode, unspecified; Z98.51 Tubal ligation status; Z98.890 Other specified postprocedural states; Z79.899 Other long term (current) drug therapy; Z88.8 Allergy status to other drugs, medicaments and biological substances
CPT/HCPCS: 47563; 74300; A4213; A4314; A4364; A4930; A6219; C1887; J0690; J0780; J1100; J1885; J2250; J2270; J2405; J2704; J2710; J3010; J3490; Q9967; 88304; A4452; A4657; J1170

== ENCOUNTER 2020-11-28 22:01 | Observation (INO) | payer OTHER, MEDICARE ==
[~2020-11-28] VITALS: Ht 160 cm; Wt 77.2 kg
--- NOTE | 2020-11-29 00:07 | ED.ADGEN ---
Past Medical History Past Medical History: CHF, Fibromyalgia, GERD Additional Past Medical Histor: lupus, cardiomyopathy, esophagitis Past Surgical History: Tubal ligation Smoking Status: Never Smoker Alcohol Use: None Drug Use: None General Adult EDM: Chief Complaint: ABDOMINAL PAIN HPI: HPI: Patient is a 60 year old female complaining of right upper quadrant pain for the past week. Also for 1 day has had left flank pain. Has also complained of some dysuria but denies any hematuria. No known history of kidney stones. Patient is 3 weeks postop cholecystectomy without any complication. No nausea or vomiting. Regular bowel movements. Denies any fevers or cough. Review of Systems: Review of Systems: All other systems within normal limits except for as noted in the HPI Current Medications: Current Medications Medications (Trade) Dose Ordered Sig/[facility] Start Time Stop Time Status Last Admin Dose Admin Fentanyl Citrate (Fentanyl 2ml Vial) 75 mcg 1X ONCE 11/29/20 00:15 11/29/20 00:16 DC 11/29/20 00:36 75 MCG Info (CONTRAST GIVEN -- Rx MONITORING) 1 each PRN DAILY PRN 11/29/20 01:15 12/01/20 01:14 Iohexol (Omnipaque 300 Mg/ml) 75 ml 1X ONCE 11/29/20 01:15 11/29/20 01:16 DC 11/29/20 01:35 75 ML Ondansetron HCl (Zofran) 4 mg 1X ONCE 11/29/20 00:15 11/29/20 00:16 DC 11/29/20 00:36 4 MG Allergies: Allergies: Allergies Coded Allergies Type Severity Reaction Last Updated Verified lisinopril Allergy Severe angioedema 11/08/20 Yes Physical Exam: PE: Constitutional: Well developed, well nourished, no acute distress, non-toxic appearance. [] HENT: Normocephalic, atraumatic, bilateral external ears normal, nose normal. [] Eyes: PERRLA, conjunctiva normal, no discharge. [] Neck: No rigidity, supple, no stridor. [] Cardiovascular: Regular rate and rhythm, brisk cap refill [] Lungs & Thorax: Non labored symmetric respirations, no tachypnea or respiratory distress [] Abdomen: Soft, nondistended, generalized tenderness or guarding palpation. Skin: Warm, dry, no erythema, no rash. [] Back: Unremarkable, no spine tenderness, left CVA tenderness to palpation Extremities: No deformities, range of motion grossly intact, no lower extremity edema [] Neurologic: Alert and oriented X 3, no focal deficits noted. [] Psychologic: Affect normal, judgement normal, mood normal. [] Current Patient Data: Labs: Laboratory Tests Test 11/28/20 22:35 11/28/20 22:48 White Blood Count 8.9 x10^3/uL (4.0-11.0) Red Blood Count 4.42 x10^6/uL (3.50-5.40) Hemoglobin 13.8 g/dL (12.0-15.5) Hematocrit 40.2 % (36.0-47.0) Mean Corpuscular Volume 91 fL (79-100) Mean Corpuscular Hemoglobin 31 pg (25-35) Mean Corpuscular Hemoglobin Concent 34 g/dL (31-37) Red Cell Distribution Width 14.0 % (11.5-14.5) Platelet Count 472 x10^3/uL (140-400) H Neutrophils (%) (Auto) 45 % (31-73) Lymphocytes (%) (Auto) 48 % (24-48) Monocytes (%) (Auto) 6 % (0-9) Eosinophils (%) (Auto) 2 % (0-3) Basophils (%) (Auto) 1 % (0-3) Neutrophils # (Auto) 3.9 x10^3/uL (1.8-7.7) Lymphocytes # (Auto) 4.2 x10^3/uL (1.0-4.8) Monocytes # (Auto) 0.5 x10^3/uL (0.0-1.1) Eosinophils # (Auto) 0.1 x10^3/uL (0.0-0.7) Basophils # (Auto) 0.1 x10^3/uL (0.0-0.2) Sodium Level 144 mmol/L (136-145) Potassium Level 3.8 mmol/L (3.5-5.1) Chloride Level 109 mmol/L (98-107) H Carbon Dioxide Level 23 mmol/L (21-32) Anion Gap 12 (6-14) Blood Urea Nitrogen 11 mg/dL (7-20) Creatinine 1.0 mg/dL (0.6-1.0) Estimated GFR (Cockcroft-Gault) 68.9 BUN/Creatinine Ratio 11 (6-20) Glucose Level 86 mg/dL (70-99) Calcium Level 9.2 mg/dL (8.5-10.1) Total Bilirubin 0.4 mg/dL (0.2-1.0) Aspartate Amino Transferase (AST) 15 U/L (15-37) Alanine Aminotransferase (ALT) 17 U/L (14-59) Alkaline Phosphatase 73 U/L (46-116) Total Protein 7.8 g/dL (6.4-8.2) Albumin 4.2 g/dL (3.4-5.0) Albumin/Globulin Ratio 1.2 (1.0-1.7) Lipase 48 U/L (73-393) L Urine Collection Type Unknown Urine Color Yellow Urine Clarity Clear Urine pH 6.5 (<5.0-8.0) Urine Specific [place] 1.015 (1.000-1.030) Urine Protein Negative mg/dL (NEG-TRACE) Urine Glucose (UA) Negative mg/dL (NEG) Urine Ketones (Stick) 15 mg/dL (NEG) Urine Blood Negative (NEG) Urine Nitrite Negative (NEG) Urine Bilirubin Negative (NEG) Urine Urobilinogen Dipstick 1.0 mg/dL (0.2 mg/dL) Urine Leukocyte Esterase Negative (NEG) Urine RBC Occ /HPF (0-2) Urine WBC Occ /HPF (0-4) Urine Squamous Epithelial Cells Mod /LPF Urine Bacteria 0 /HPF (0-FEW) Urine Mucus Slight /LPF Laboratory Tests 11/28/20 22:35 Laboratory Tests 11/28/20 22:35 Vital Signs: Vital Signs Date Time Temp Pulse Resp B/P (MAP) Pulse Ox O2 Delivery O2 Flow Rate FiO2 11/29/20 01:18 98 Room Air 11/28/20 22:42 97.9 74 18 141/105 (117) 97.9 EKG: EKG: [] Heart Score: C/O Chest Pain: No Risk Factors: Risk Factors: DM, Current or recent (<one month) smoker, HTN, HLP, family history of CAD, obesity. Risk Scores: Score 0 - 3: 2.5% MACE over next 6 weeks - Discharge Home Score 4 - 6: 20.3% MACE over next 6 weeks - Admit for Clinical Observation Score 7 - 10: 72.7% MACE over next 6 weeks - Early Invasive Strategies Radiology/Procedures: Radiology/Procedures: [facility] [address] [place] [address] IMAGING REPORT Signed PATIENT: TRESSA TITUS RACCOUNT: [id number] : 1960 LOCATION: ER AGE: 60 SEX: F EXAM STATUS: REG ER ORD. PHYSICIAN: BRANDON ANTUNEZ MD REASON: RUQ and left flank pain, post op saige, OMNI 300, 75 ML IV PROCEDURE: CT ABD PELV W/ IV CONTRST ONLY CT ABDOMEN+PELVIS W History: RUQ and left flank pain, post op saige Comparison: None. Technique: After administration of intravenous contrast, helical CT of the ab domen and pelvis was performed from the lung bases through the ischial tuberosities. Coronal and sagittal reconstructions were obtained. 75 mL of Omnipaque 300 were used. One or more of the following dose reduction techniques were utilized: Automated exposure control (AEC), Adjustment of mA and/or kV according to patient size, Use of iterative reconstruction technique such as ASiR, CT scan done according to ALARA and image gently/image wisely Abdomen Findings: The visualized lung bases are clear. Calcified hepatic and splenic granulomas. The pancreas and left adrenal gland are normal. Right adrenal adenoma. Cholecystectomy. Left renal wedge-shaped hypoenhancing region. No opaque urinary calculi. There is no hydronephrosis. The visualized loops of small bowel are normal. The visualized loops of large bowel are normal. There is no evidence of bowel obstruction. Appendix is normal. There is no free fluid. There is no mesenteric or retroperitoneal adenopathy. The abdominal aorta is normal in caliber. Mild aortoiliac atherosclerotic disease. Pelvis Findings: Urinary bladder is partially distended with mild wall thickening. Uterus is present. No pelvic free fluid. There is no pelvic or inguinal adenopathy. Degenerative changes of the spine. IMPRESSION: 1. Small left renal wedge-shaped hypoenhancing region could represent acute pyelonephritis or renal infarct. 2. Mild bladder wall thickening could relate to underdistention or cystitis. Consider urinalysis. Electronically signed by: Andres Cordero MD (11/29/2020 2:00 AM) [facility] DICTATED and SIGNED BY: ANDRES CORDERO MD DATE: 11/29/20 [id number] [] Course & Med Decision Making: Course & Med Decision Making Pertinent Labs and Imaging studies reviewed. (See chart for details) [] Dragon Disclaimer: Dragon Disclaimer: This electronic medical record was generated, in whole or in part, using a voice recognition dictation system. Departure Departure Impression: Primary Impression: Renal infarct Disposition: ADMITTED INPATIENT Admitting Physician: Candelario Marx Condition: STABLE Referrals: CANDELARIO MARX MD (PCP) BRANDON ANTUNEZ MD Nov 29, 2020 00:07
[2020-11-29 00:15] LABS: BASO # 0.1 x10^3/uL (0.0-0.2); BASO % 1 % (0-3); EOS # 0.1 x10^3/uL (0.0-0.7); EOS % 2 % (0-3); HEMATOCRIT 40.2 % (36.0-47.0); HEMOGLOBIN 13.8 g/dL (12.0-15.5); LYMPH # 4.2 x10^3/uL (1.0-4.8); LYMPH % 48 % (24-48); MEAN CORPUSCULAR HEMOGLOBIN 31 pg (25-35); MEAN CORPUSCULAR HGB CONC 34 g/dL (31-37); MEAN CORPUSCULAR VOLUME 91 fL (79-100); MONO # 0.5 x10^3/uL (0.0-1.1); MONO % 6 % (0-9); NEUT # 3.9 x10^3/uL (1.8-7.7); NEUT % 45 % (31-73); PLATELET COUNT 472 x10^3/uL (140-400); RED BLOOD COUNT 4.42 x10^6/uL (3.50-5.40); WHITE BLOOD COUNT 8.9 x10^3/uL (4.0-11.0)
[2020-11-29] MEDS ORDERED: ONDANSETRON PF 4 MG/2 ML VIAL. IVP ONE (00:15)
[2020-11-29] MEDS ORDERED: fentaNYL PF VIAL 100 MCG/2 ML VIAL IVP ONE (00:15)
[2020-11-29 00:17] LABS: BILIRUBIN,URINE NEGATIVE (NEG); CLARITY,URINE CLEAR; COLOR,URINE YELLOW; NITRITE,URINE NEGATIVE (NEG); PH,URINE 6.5 (<5.0-8.0); PROTEIN,URINE NEGATIVE (NEG-TRACE)
[2020-11-29 00:25] LABS: BACTERIA,URINE 0 /HPF (0-FEW); RBC,URINE OCC /HPF (0-2); WBC,URINE OCC /HPF (0-4)
[2020-11-29 00:27] LABS: CALCIUM 9.2 mg/dL (8.5-10.1); GFR 68.9; POTASSIUM 3.8 mmol/L (3.5-5.1)
[2020-11-29 00:34] LABS: ALBUMIN 4.2 g/dL (3.4-5.0); ALBUMIN/GLOBULIN RATIO 1.2 (1.0-1.7); TOTAL BILIRUBIN 0.4 mg/dL (0.2-1.0); TOTAL PROTEIN 7.8 g/dL (6.4-8.2)
[2020-11-29] MEDS ORDERED: IOHEXOL 300 MG/ML 100ML VIAL. IV ONE (01:15)
[2020-11-29] MEDS ORDERED: CONTRAST GIVEN. MC PRN (01:15)
--- NOTE | 2020-11-29 02:03 | RAD ---
CT ABDOMEN+PELVIS W History: RUQ and left flank pain, post op saige Comparison: None. Technique: After administration of intravenous contrast, helical CT of the abdomen and pelvis was per formed from the lung bases through the ischial tuberosities. Coronal and sagittal reconstructions wer e obtained. 75 mL of Omnipaque 300 were used. One or more of the following dose reduction techniques were utilized: Automated exposure control (AEC), Adjustment of mA and/or kV according to patient size , Use of iterative reconstruction technique such as ASiR, CT scan done according to ALARA and image g ently/image wisely Abdomen Findings: The visualized lung bases are clear. Calcified hepatic and splenic granulomas. The pancreas and left adrenal gland are normal. Right adren al adenoma. Cholecystectomy. Left renal wedge-shaped hypoenhancing region. No opaque urinary calculi. There is no hydronephrosis. The visualized loops of small bowel are normal. The visualized loops of large bowel are normal. There is no evidence of bowel obstruction. Appendix is normal. There is no free fluid. There is no mesenteric or retroperitoneal adenopathy. The abdominal aorta is normal in caliber. Mild aortoiliac atherosclerotic disease. Pelvis Findings: Urinary bladder is partially distended with mild wall thickening. Uterus is present. No pelvic free f luid. There is no pelvic or inguinal adenopathy. Degenerative changes of the spine. IMPRESSION: 1. Small left renal wedge-shaped hypoenhancing region could represent acute pyelonephritis or renal i nfarct. 2. Mild bladder wall thickening could relate to underdistention or cystitis. Consider urinalysis. Electronically signed by: Carlo Cordero MD (11/29/2020 2:00 AM) [facility]
[2020-11-29] MEDS: MORPHINE SULFATE 4 MG/ML INJ. IV PRN ×3 (03:35→16:54)
[2020-11-29 07:30] VITALS: BP 152/94
[2020-11-29] MEDS: ONDANSETRON PF 4 MG/2 ML VIAL. IV PRN ×2 (07:52→16:53)
[2020-11-29] MEDS ORDERED: ACETAMINOPHEN 500 MG TABLET PO PRN (09:15)
[2020-11-29] MEDS: hydroCHLOROthiazide 12.5 MG CAPSULE PO SCH (10:56)
[2020-11-29] MEDS: PANTOPRAZOLE 40 MG TABLET.DR. PO SCH (10:57)
[2020-11-29] MEDS: CARVEDILOL 12.5 MG TABLET. PO SCH ×2 (10:58→17:00)
[2020-11-29] MEDS: ASPIRIN 325 MG TABLET PO SCH (10:58)
[2020-11-29] MEDS: TOPIRAMATE 25 MG TABLET. PO SCH ×2 (10:59→21:30)
[2020-11-29 11:14] VITALS: BP 135/88
--- NOTE | 2020-11-29 11:37 | PDOC2 ---
CONSULT Date of Consult Date of Consult DATE: 11/29/20 TIME: 11:22 Reason for Consult Reason for Consult: RENAL INFARCT Referring Physician Referring Physician: ARASELI Identification/Chief Complaint Chief Complaint LEFT FLANK PAIN AND RUQ PAIN Source Source: Chart review, Patient History of Present Illness Reason for Visit: THIS IS A 60 YR OLD WITH RUQ PAIN. SHE UNDERWENT A CHOLY ON November OF THIS MONTH. SHE HAS ALSO NOTED LEFT FLANK PAIN FOR THE LAST COUPLE DAYS. IMAGING CT DONE WITH CONTRAST INDICATED A SMALL WEDGE DEFECT IN THE LEFT KIDNEY C/W INFARCT. UA NEG FOR BLOOD, PROTEIN OR INFECTION. SHE HAS NO KNOWN HX OF ANY VTE. IMAGING WAS DONE IN THE PAST FOR SOB BUT CTA WAS NEG FOR ANY PE AND SHE WAS DX WITH REACTIVE AIRWAY DZ. NO CKD REPORTED. SHE DOES HAVE A HX OF SLE WITH SKIN LESIONS AND IRITIS AND POSSIBLE MYOCARDITIS. HAD CM AND CHF WITH AN EF OF 18% WHICH IMPROVED TO 45% PER OLD RECORDS. SHE WAS ON PLAQUENIL BUT STATES SHE STOPPED TAKING THIS LAST YEAR. SHE WAS ALSO ON AN ASA DAILY BUT STOPPED TAKING THIS WELL. NO HX OF ANY MISCARRIAGES REPORTED. STATES SHE HAS SEES RHEUMATOLOGY. Past Medical History Cardiovascular: CHF, HTN GI: Gastritis Rheumatologic: Other (SLE) Past Surgical History Past Surgical History: Cholecystectomy Family History Family History: Hypertension Social History No ALCOHOL: rare Drugs: Marijuana Lives: with Family Current Problem List Problem List Problems Medical Problems: (1) Renal infarct Status: Acute Current Medications Current Medications Current Medications Fentanyl Citrate (Fentanyl 2ml Vial) 75 mcg 1X ONCE IVP Last administered on 11/29/20at 00:36; Start 11/29/20 at 00:15; Stop 11/29/20 at 00:16; Status DC Ondansetron HCl (Zofran) 4 mg 1X ONCE IVP Last administered on 11/29/20at 00:36; Start 11/29/20 at 00:15; Stop 11/29/20 at 00:16; Status DC Iohexol (Omnipaque 300 Mg/ml) 75 ml 1X ONCE IV Last administered on 11/29/20at 01:35; Start 11/29/20 at 01:15; Stop 11/29/20 at 01:16; Status DC Info (CONTRAST GIVEN -- Rx MONITORING) 1 each PRN DAILY PRN MC SEE COMMENTS; Start 11/29/20 at 01:15; Stop 12/01/20 at 01:14 Ondansetron HCl (Zofran) 4 mg PRN Q8HRS PRN IV NAUSEA/VOMITING Last administered on 11/29/20at 07:52; Start 11/29/20 at 02:45; Stop 11/30/20 at 02:44 Morphine Sulfate (Morphine Sulfate) 4 mg PRN Q2HR PRN IV PAIN Last administered on 11/29/20at 07:52; Start 11/29/20 at 02:45; Stop 11/30/20 at 02:44 Acetaminophen (Tylenol) 500 mg PRN Q4HRS PRN PO MILD PAIN 1-3; Start 11/29/20 at 09:15 Topiramate (Topamax) 25 mg BID PO Last administered on 11/29/20at 10:59; Start 11/29/20 at 10:00 Carvedilol (Coreg) 12.5 mg BIDWMEALS PO Last administered on 11/29/20at 10:58; Start 11/29/20 at 09:30 Hydrochlorothiazide (Microzide) 12.5 mg DAILY PO Last administered on 11/29/20at 10:56; Start 11/29/20 at 10:00 Pantoprazole Sodium (Protonix) 40 mg DAILYAC PO Last administered on 11/29/20at 10:57; Start 11/29/20 at 11:30 Aspirin (Cayla Aspirin) 325 mg DAILYWBKFT PO Last administered on 11/29/20at 10:58; Start 11/29/20 at 10:00 Lorazepam (Ativan) 1 mg PRN Q6HRS PRN PO ANXIETY / AGITATION; Start 11/29/20 at 09:15 Active Scripts Active Reported Mylanta Maximum Strength Liq (Mag Hydrox/Aluminum Hyd/Simeth) 355 Ml Oral.susp 30 Ml PO PRN QID PRN Acetaminophen 500 Mg Tablet 500 Mg PO PRN Q6-8HRS PRN Topamax (Topiramate) 25 Mg Tablet 25 Mg PO BID Multivitamins (Multivitamin) 1 Each Tablet 1 Each PO DAILY Hydrochlorothiazide Tablet (Hydrochlorothiazide) 12.5 Mg Tablet 12.5 Mg PO DAILY Carvedilol 25 Mg Tablet 12.5 Mg PO BIDWMEALS Omeprazole 40 Mg Capsule.dr 1 Cap PO DAILY Allergies Allergies: Coded Allergies: lisinopril (Verified Allergy, Severe, angioedema, 11/08/20) ROS General: YES: Fatigue, Malaise PSYCHOLOGICAL ROS: YES: Anxiety HEENT: YES: Heacaches Respiratory: YES: Cough Gastrointestinal: Yes Abdominal Pain Genitourinary: YES Flank Pain Musculoskeletal: Yes Muscular Weakness Neurological: Yes Weakness Skin: Yes Dry Skin Physical Exam General: Alert, Oriented X3, Cooperative, No acute distress HEENT: Atraumatic Lungs: Clear to auscultation Heart: Regular rate Abdomen: Normal bowel sounds, Soft, No tenderness Skin: No rashes Neuro: Normal speech Psych/Mental Status: Mental status NL, Mood NL MUSCULOSKELETAL: No joint tenderness, No deformity, No swelling Vitals VITALS Vital Signs Date Time Temp Pulse Resp B/P (MAP) Pulse Ox O2 Delivery O2 Flow Rate FiO2 11/29/20 11:14 97.5 60 20 135/88 (104) 100 Room Air 97.5 Labs Labs Laboratory Tests Test 11/28/20 22:35 11/28/20 22:48 11/29/20 01:22 White Blood Count 8.9 x10^3/uL (4.0-11.0) Red Blood Count 4.42 x10^6/uL (3.50-5.40) Hemoglobin 13.8 g/dL (12.0-15.5) Hematocrit 40.2 % (36.0-47.0) Mean Corpuscular Volume 91 fL (79-100) Mean Corpuscular Hemoglobin 31 pg (25-35) Mean Corpuscular Hemoglobin Concent 34 g/dL (31-37) Red Cell Distribution Width 14.0 % (11.5-14.5) Platelet Count 472 x10^3/uL (140-400) Neutrophils (%) (Auto) 45 % (31-73) Lymphocytes (%) (Auto) 48 % (24-48) Monocytes (%) (Auto) 6 % (0-9) Eosinophils (%) (Auto) 2 % (0-3) Basophils (%) (Auto) 1 % (0-3) Neutrophils # (Auto) 3.9 x10^3/uL (1.8-7.7) Lymphocytes # (Auto) 4.2 x10^3/uL (1.0-4.8) Monocytes # (Auto) 0.5 x10^3/uL (0.0-1.1) Eosinophils # (Auto) 0.1 x10^3/uL (0.0-0.7) Basophils # (Auto) 0.1 x10^3/uL (0.0-0.2) Sodium Level 144 mmol/L (136-145) Potassium Level 3.8 mmol/L (3.5-5.1) Chloride Level 109 mmol/L (98-107) Carbon Dioxide Level 23 mmol/L (21-32) Anion Gap 12 (6-14) Blood Urea Nitrogen 11 mg/dL (7-20) Creatinine 1.0 mg/dL (0.6-1.0) Estimated GFR (Cockcroft-Gault) 68.9 BUN/Creatinine Ratio 11 (6-20) Glucose Level 86 mg/dL (70-99) Calcium Level 9.2 mg/dL (8.5-10.1) Total Bilirubin 0.4 mg/dL (0.2-1.0) Aspartate Amino Transf (AST/SGOT) 15 U/L (15-37) Alanine Aminotransferase (ALT/SGPT) 17 U/L (14-59) Alkaline Phosphatase 73 U/L (46-116) Total Protein 7.8 g/dL (6.4-8.2) Albumin 4.2 g/dL (3.4-5.0) Albumin/Globulin Ratio 1.2 (1.0-1.7) Lipase 48 U/L (73-393) Urine Collection Type Unknown Urine Color Yellow Urine Clarity Clear Urine pH 6.5 (<5.0-8.0) Urine Specific [place] 1.015 (1.000-1.030) Urine Protein Negative mg/dL (NEG-TRACE) Urine Glucose (UA) Negative mg/dL (NEG) Urine Ketones (Stick) 15 mg/dL (NEG) Urine Blood Negative (NEG) Urine Nitrite Negative (NEG) Urine Bilirubin Negative (NEG) Urine Urobilinogen Dipstick 1.0 mg/dL (0.2 mg/dL) Urine Leukocyte Esterase Negative (NEG) Urine RBC Occ /HPF (0-2) Urine WBC Occ /HPF (0-4) Urine Squamous Epithelial Cells Mod /LPF Urine Bacteria 0 /HPF (0-FEW) Urine Mucus Slight /LPF Lactic Acid Level 0.9 mmol/L (0.4-2.0) Laboratory Tests Test 11/28/20 22:35 11/28/20 22:48 11/29/20 01:22 White Blood Count 8.9 x10^3/uL (4.0-11.0) Red Blood Count 4.42 x10^6/uL (3.50-5.40) Hemoglobin 13.8 g/dL (12.0-15.5) Hematocrit 40.2 % (36.0-47.0) Mean Corpuscular Volume 91 fL (79-100) Mean Corpuscular Hemoglobin 31 pg (25-35) Mean Corpuscular Hemoglobin Concent 34 g/dL (31-37) Red Cell Distribution Width 14.0 % (11.5-14.5) Platelet Count 472 x10^3/uL (140-400) Neutrophils (%) (Auto) 45 % (31-73) Lymphocytes (%) (Auto) 48 % (24-48) Monocytes (%) (Auto) 6 % (0-9) Eosinophils (%) (Auto) 2 % (0-3) Basophils (%) (Auto) 1 % (0-3) Neutrophils # (Auto) 3.9 x10^3/uL (1.8-7.7) Lymphocytes # (Auto) 4.2 x10^3/uL (1.0-4.8) Monocytes # (Auto) 0.5 x10^3/uL (0.0-1.1) Eosinophils # (Auto) 0.1 x10^3/uL (0.0-0.7) Basophils # (Auto) 0.1 x10^3/uL (0.0-0.2) Sodium Level 144 mmol/L (136-145) Potassium Level 3.8 mmol/L (3.5-5.1) Chloride Level 109 mmol/L (98-107) Carbon Dioxide Level 23 mmol/L (21-32) Anion Gap 12 (6-14) Blood Urea Nitrogen 11 mg/dL (7-20) Creatinine 1.0 mg/dL (0.6-1.0) Estimated GFR (Cockcroft-Gault) 68.9 BUN/Creatinine Ratio 11 (6-20) Glucose Level 86 mg/dL (70-99) Calcium Level 9.2 mg/dL (8.5-10.1) Total Bilirubin 0.4 mg/dL (0.2-1.0) Aspartate Amino Transf (AST/SGOT) 15 U/L (15-37) Alanine Aminotransferase (ALT/SGPT) 17 U/L (14-59) Alkaline Phosphatase 73 U/L (46-116) Total Protein 7.8 g/dL (6.4-8.2) Albumin 4.2 g/dL (3.4-5.0) Albumin/Globulin Ratio 1.2 (1.0-1.7) Lipase 48 U/L (73-393) Urine Collection Type Unknown Urine Color Yellow Urine Clarity Clear Urine pH 6.5 (<5.0-8.0) Urine Specific [place] 1.015 (1.000-1.030) Urine Protein Negative mg/dL (NEG-TRACE) Urine Glucose (UA) Negative mg/dL (NEG) Urine Ketones (Stick) 15 mg/dL (NEG) Urine Blood Negative (NEG) Urine Nitrite Negative (NEG) Urine Bilirubin Negative (NEG) Urine Urobilinogen Dipstick 1.0 mg/dL (0.2 mg/dL) Urine Leukocyte Esterase Negative (NEG) Urine RBC Occ /HPF (0-2) Urine WBC Occ /HPF (0-4) Urine Squamous Epithelial Cells Mod /LPF Urine Bacteria 0 /HPF (0-FEW) Urine Mucus Slight /LPF Lactic Acid Level 0.9 mmol/L (0.4-2.0) Images Images CT ABDOMEN+PELVIS W History: RUQ and left flank pain, post op saige Comparison: None. Technique: After administration of intravenous contrast, helical CT of the abdomen and pelvis was performed from the lung bases through the ischial tuberosities. Coronal and sagittal reconstructions were obtained. 75 mL of Omnipaque 300 were used. One or more of the following dose reduction techniques were utilized: Automated exposure control (AEC), Adjustment of mA and/or kV according to patient size, Use of iterative reconstruction technique such as ASiR, CT scan done according to ALARA and image gently/image wisely Abdomen Findings: The visualized lung bases are clear. Calcified hepatic and splenic granulomas. The pancreas and left adrenal gland are normal. Right adrenal adenoma. Cholecystectomy. Left renal wedge-shaped hypoenhancing region. No opaque urinary calculi. There is no hydronephrosis. The visualized loops of small bowel are normal. The visualized loops of large bowel are normal. There is no evidence of bowel obstruction. Appendix is normal. There is no free fluid. There is no mesenteric or retroperitoneal adenopathy. The abdominal aorta is normal in caliber. Mild aortoiliac atherosclerotic disease. Pelvis Findings: Urinary bladder is partially distended with mild wall thickening. Uterus is present. No pelvic free fluid. There is no pelvic or inguinal adenopathy. Degenerative changes of the spine. IMPRESSION: 1. Small left renal wedge-shaped hypoenhancing region could represent acute pyelonephritis or renal infarct. 2. Mild bladder wall thickening could relate to underdistention or cystitis. Consider urinalysis. Electronically signed by: Carlo Cordero MD (11/29/2020 2:00 AM) [facility] Assessment/Plan Assessment/Plan IMP SMALL LEFT WEDGE AREA OF RENAL INFARCTION-VERY LIKELY HYPERCOAGULABLE STATE RUQ PAIN-POST RECENT CHOLY L FLANK PAIN RECENT CHOLY HX OF SLE WITH HX OF IRITIS, ? MYOCARDITIS AND DISCOID LESIONS GERD CHF-CM HX-EF WAS 18% AT ONE POINT BUT THEN IMPROVED WITH LAST RECORDED EF OF 45% REACTIVE AIRWAY DISEASE HX FIBROMYALGIA HX PLAN NO NEED FOR ANGIOGRAPHIC INTERVENTION SUGGEST RESUMPTION OF HER PLAQUENIL-STOPPED THIS A WHILE AGO ALSO RECOMMEND ANTIPLATELET THERAPY-STOPPED HER ASA A WHILE AGO WELL NEEDS TO RESUME HER F/U WITH RHEUMATOLOGY-NEEDS W/U FOR HYPERCOAGULABLE STATE- MAY NEED FULL ANTICOAGULATION IF POSITIVE OTHERWISE SUGGEST CONTINUING ANTIPLATELET THERAPY ALONE CURRENTLY NO EVIDENCE OF SLE RELATED RENAL INVOLVEMENT UA IS NEG FOR GLOMERULONEPHRITIS AND PYELONEPHRITIS WILL FOLLOW NEEDED RICHARD WOODS MD Nov 29, 2020 11:37
--- NOTE | 2020-11-29 14:29 | CARD ---
MR#: [id number] Date of Study: 11/29/2020 Ordering Physician: CANDELARIO MARX, Referring Physician: CANDELARIO MARX Tech: Emeli Leach SUKHI APPROVED REPORT EXAM: Two-dimensional and M-mode echocardiogram with Doppler and color Doppler. Other Information Quality : AverageHR: 64bpm Rhythm : NSR INDICATION Cardiomyopathy RISK FACTORS Hypertension 2D DIMENSIONS RVDd3.3 (2.9-3.5cm)Left Atrium(2D)3.2 (1.6-4.0cm) IVSd1.0 (0.7-1.1cm)Aortic Root(2D)3.0 (2.0-3.7cm) LVDd4.9 (3.9-5.9cm)LVOT Diameter1.9 (1.8-2.4cm) PWd1.1 (0.7-1.1cm)LVDs3.5 (2.5-4.0cm) FS (%) 27.8 %SV59.6 ml LVEF(%)53.7 (>50%) Aortic Valve AoV Peak Sukh.126.1cm/sAoV VTI29.9cm AO Peak GR.6.4mmHgLVOT Peak Sukh.79.1cm/s AO Mean GR.3mmHgAVA (VMAX)1.79cm2 Mitral Valve MV E Fsuzwewg28.3cm/sMV DECEL [id number] MV A Cehowlxl82.4cm/sE/A Ratio1.1 Tricuspid Valve TR P. [id number]/sTR Peak Gr.37mmHg LEFT VENTRICLE The left ventricle is normal size. There is normal left ventricular wall thickness. The left ventricu lar systolic function is normal. Estimated ejection fraction 55-60%. There is normal LV segmental wa ll motion. The left ventricular diastolic function and filling is normal for age. RIGHT VENTRICLE The right ventricle is normal size. There is normal right ventricular wall thickness. The right ventr icular systolic function is normal. ATRIA The left atrium size is normal. The right atrium size is normal. The interatrial septum is intact wit h no evidence for an atrial septal defect or patent foramen ovale as noted on 2-D or Doppler imaging. AORTIC VALVE The aortic valve is normal in structure and function. Doppler and Color Flow revealed no significant aortic regurgitation. There is no significant aortic valvular stenosis. MITRAL VALVE The mitral valve is normal in structure and function. There is no evidence of mitral valve prolapse. There is no mitral valve stenosis. Doppler and Color-flow revealed mild mitral regurgitation. TRICUSPID VALVE The tricuspid valve is normal in structure and function. Doppler and Color Flow revealed mild tricusp id regurgitation. Estimated PAP 40 mmHg. There is no tricuspid valve stenosis. PULMONIC VALVE The pulmonary valve is normal in structure and function. Doppler and Color Flow revealed mild pulmoni c valvular regurgitation. GREAT VESSELS The aortic root is normal in size. The ascending aorta is normal in size. The IVC is normal in size a nd collapses >50% with inspiration. PERICARDIAL EFFUSION There is no evidence of significant pericardial effusion. Critical Notification Critical Value: No <Conclusion> The left ventricular systolic function is normal. Estimated ejection fraction 55-60%. There is normal LV segmental wall motion. Mild mitral regurgitation. Mild tricuspid regurgitation. Estimated PAP 40 mmHg. There is no evidence of significant pericardial effusion. Signed by : Blair Ca, Electronically Approved : 11/29/2020 14:29:23
[2020-11-29 15:00] VITALS: BP 105/65
[2020-11-29 19:00] VITALS: BP 124/68
[2020-11-29 23:00] VITALS: BP 143/81
[2020-11-30] MEDS: MORPHINE SULFATE 4 MG/ML INJ. IV PRN (00:39)
[2020-11-30] MEDS: ONDANSETRON PF 4 MG/2 ML VIAL. IV PRN (00:42)
[2020-11-30 03:00] VITALS: BP 129/75
[2020-11-30 07:00] VITALS: BP 130/78
--- NOTE | 2020-11-30 08:19 | PDOC ---
Provider Note Date of Service: DATE: 11/30/20 TIME: 08:17 Provider Note [id number] Justifications for Admission Other Justification CANDELARIO MARX MD Nov 30, 2020 08:19
[2020-11-30] MEDS: ASPIRIN 325 MG TABLET PO SCH (08:40)
[2020-11-30] MEDS: CARVEDILOL 12.5 MG TABLET. PO SCH (08:40)
[2020-11-30] MEDS: hydroCHLOROthiazide 12.5 MG CAPSULE PO SCH (08:40)
[2020-11-30] MEDS: TOPIRAMATE 25 MG TABLET. PO SCH (08:40)
[2020-11-30] MEDS: PANTOPRAZOLE 40 MG TABLET.DR. PO SCH (08:40)
--- NOTE | 2020-11-30 09:33 | SSS ---
ADMIT DATE: 11/30/2020 23-HOUR SUMMARY HOSPITAL SUMMARY: A 60-year-old black female who came in with a few days of abrupt onset of left flank pain with normal labs, CBC, chemistry and urine. CT scan showed a small left renal infarct, likely accounting for the pain and no sign of any other lesions. Hypercoagulable profile was ordered, but declined per hospital lab. Echocardiogram was all within normal limits and not a source of her renal infarct. She was seen by Dr. Tomas who agreed this was a hypercoagulable state, likely secondary to her lupus and she has been off aspirin and lupus treatment and aspirin was resumed and she is feeling better and able to be followed as an outpatient. FINAL DIAGNOSIS: Acute left renal infarction, likely secondary to systemic lupus erythematosus. OPERATIONS, PROCEDURES, COMPLICATIONS: None. CONSULTATION: Dr. Tomas. DISPOSITION: Resume aspirin low dose 81 mg daily. All home meds remain the same. She will see , her laborer stores, for hypercoagulable panel and decisions regarding antiplatelet versus antithrombotic treatment in the future, but likely aspirin will be adequate. Rest of home meds remain the same. ACTIVITY AND DIET: Same as above. CHANG/GAMALIEL/CASIE HINTON: Tunde TID: [id number]
[2020-11-30 11:00] VITALS: BP 131/79
--- NOTE | 2020-11-30 11:53 | PDOC ---
Renal-Progress Notes Subjective Notes Notes FEELING BETTER History of Present Illness Hx of present illness STABLE Vitals Vitals Vital Signs Date Time Temp Pulse Resp B/P (MAP) Pulse Ox O2 Delivery O2 Flow Rate FiO2 11/30/20 08:40 82 130/78 11/30/20 07:00 98.1 18 98 Room Air 98.1 Weight Weight [ ] I.O. Intake and Output Intake and Output 11/30/20 07:00 Intake Total 900 ml Balance 900 ml Intake Oral 900 ml # Voids 3 Review of Systems Constitutional: yes: alert, oriented Ears/Nose/Throat: Yes: no symptom reported Eyes: Yes: no symptom reported Pulmonary: Yes no symptom reported Cardiovascular: Yes no symptom reported Gastrointestional: Yes: no symptom reported Genitourinary: Yes: no symptom reported Musculoskeletal: Yes: no symptom reported Skin: Yes no symptom reported Psychiatric/Neurological: Yes: no symptom reported Endocrine: Yes: no symptom reported Physical Exam General Appearance: no apparent distress Skin: warm Respiratory: bilateral CTA Heart: S1S2 Abdomen: soft, bowel sounds present Genitourinary: bladder flat Extremities: pulses present Neurology: alert, oriented Assessment Assessment IMP SMALL LEFT WEDGE AREA OF RENAL INFARCTION-VERY LIKELY HYPERCOAGULABLE STATE RUQ PAIN-POST RECENT CHOLY L FLANK PAIN-NEARLY RESOLVED RECENT CHOLY HX OF SLE WITH HX OF IRITIS, ? MYOCARDITIS AND DISCOID LESIONS GERD CHF-CM HX-EF WAS 18% AT ONE POINT BUT THEN IMPROVED WITH LAST RECORDED EF OF 45% REACTIVE AIRWAY DISEASE HX FIBROMYALGIA HX PLAN NO NEED FOR ANGIOGRAPHIC INTERVENTION SUGGEST RESUMPTION OF HER PLAQUENIL-STOPPED THIS A WHILE AGO ALSO RECOMMEND ANTIPLATELET THERAPY-STOPPED HER ASA A WHILE AGO WELL NEEDS TO RESUME HER F/U WITH RHEUMATOLOGY-NEEDS W/U FOR HYPERCOAGULABLE STATE- MAY NEED FULL ANTICOAGULATION IF POSITIVE OTHERWISE SUGGEST CONTINUING ANTIPLATELET THERAPY ALONE CURRENTLY NO EVIDENCE OF SLE RELATED RENAL INVOLVEMENT UA IS NEG FOR GLOMERULONEPHRITIS AND PYELONEPHRITIS-NO BLOOD OR PROTEIN NOTED ABOVE PT BEING DISCHARGED TODAY SHE IS GOING TO SEE RHEUMATOLOGY THIS AFTERNOON RICHARD WOODS MD Nov 30, 2020 11:53
--- NOTE | 2020-11-30 14:00 | NUR ---
patient discharged home with spouse and instructions for follow up with her sports physiotherapist for further testing and blood work. meds reviewed. pt stable upon dc. IV removed intact.
--- NOTE | 2020-11-30 14:06 | NUR ---
SS following for discharge planning. SS reviewed pt chart and discussed with pt RN. Pt is from home with spouse and is currently on room air. Discharge order on the chart for home with self care.
== END 2020-11-30 14:00 | disposition home or self-care (01) ==
LOC: ER 22:01 → ED HOLD 11-29 03:40 → INTOOBSV 11-29 03:40 → 5 NORTH 11-29 10:49
PROVIDERS: ADMIT Family Medicine; ATTEND Family Medicine
DX: N28.0 Ischemia and infarction of kidney (principal); I11.0 Hypertensive heart disease with heart failure; I50.9 Heart failure, unspecified; K21.9 Gastro-esophageal reflux disease without esophagitis; I42.9 Cardiomyopathy, unspecified; J45.909 Unspecified asthma, uncomplicated; M32.9 Systemic lupus erythematosus, unspecified; M79.7 Fibromyalgia; N30.90 Cystitis, unspecified without hematuria; Z79.82 Long term (current) use of aspirin; Z98.51 Tubal ligation status; Z90.49 Acquired absence of other specified parts of digestive tract
CPT/HCPCS: 36415; 74177; 80053; 81001; 83605; 83690; 85025; 93306; 96374; 96375; 96376; 99285; G0378; J2270; J2405; J3010; Q9967; G0379